=== PATIENT | female | born 1990 | race Caucasian/White ===

== ENCOUNTER 2023-03-25 21:03 | Emergency (ER) | payer OTHER, SELFPAY ==
[2023-03-25 21:09] VITALS: BP 184/99; PULSE 87; RESP 16; TEMP 36.7; O2SAT 100; BMI 38.7
--- NOTE | 2023-03-25 21:28 | HMH.EDGENADL ---
Discharge Plan Disposition Patient Disposition: Home, Self-Care Prescriptions Prescriptions: New amoxicillin-pot clavulanate 875-125 mg tablet 1 tab PO BID 7 Days Qty: 14 0RF No Action Ozempic 1 mg/dose (4 mg/3 mL) Pen Injector 1 mg SQ WEEKLY amoxicillin 500 mg Capsule 500 mg PO BID Referrals Follow up/Referrals: Genet Gusman [Primary Care Provider] - See instructions Activity Restrictions/Add. Instructions Additional Instructions/Restrictions: Call your family doctor to establish care for this visit to the emergency department and schedule follow-up within 48 hours to ensure improvement. If you have any worsening of your condition or any other concerning signs or symptoms, return to the emergency department or your primary care doctor for further evaluation. Clinical Impressions Clinical Impression: Gingival abscess Discharge ED Provider: Panda Stone General Adult HPI General Chief complaint: Dental/Oral Stated complaint: dental pain Time Seen by Provider: 03/25/23 21:10 Mode of Arrival: Family Vehicle Source of Information: Patient Limitations: No Limitations Description of Symptoms (Recalled from ER Triage Doc. by RN): 32 yo female presents with left upper jaw and facial pain. Patient is alert, oriented, afebrile. States she is currently taking amoxicillin and steroids, and poc is to take out the tooth next saturday with the oral surgeon. Moderate swelling noted throughout day today. Denies diffculty breathing. History of Present Illness HPI narrative: 32-year-old female with poor dentition following with dentistry presenting with left-sided facial swelling. Patient states that she has been on antibiotics on and off, supposed to follow-up with dentistry on 05 April. Started having facial swelling for the last couple of days. No fevers or chills, nausea or vomiting, but having difficulty and pain with eating secondary to pain. No trismus, voice changes, or any other concerns. Related Data Home Medications Medication Instructions Recorded Confirmed amoxicillin 500 mg capsule 500 mg PO BID 03/25/23 03/25/23 semaglutide 1 mg/dose (4 mg/3 mL) 1 mg SQ WEEKLY 03/25/23 03/25/23 subcutaneous pen injector (Ozempic) Previous Rx's Medication Instructions Recorded amoxicillin 875 mg-potassium 1 tab PO BID 7 days #14 tabs 03/25/23 clavulanate 125 mg tablet Allergies Allergy/AdvReac Type Severity Reaction Status Date / Time No Known Allergies Allergy Verified 03/25/23 21:14 [facility] Disclaimer: The information contained in this section may have been updated after the patient was seen, as this information can be updated by other users. Social History Smoking Status: Unknown if ever smoked alcohol intake: never current occupational status: employed Travel in the last 8 weeks: None ROS Obtained: Yes All systems reviewed & no additional complaints except as documented Physical Exam General General appearance: alert and in no apparent distress Head Head exam: atraumatic, normocephalic and other (No obvious, objective swelling of the face, but does feel mildly indurated.) Eye Eye exam: Present normal appearance, PERRL and EOMI ENT ENT exam: Present mucous membranes moist and other (No evidence of tonsillitis, exudate, pharyngeal erythema, uvular deviation, palatal swelling, trismus, obvious drainable dental abscess, angioedema, or other abnormal darell pharyngeal findings) Neck Neck exam: Present normal inspection, full ROM and trachea midline Respiratory Respiratory exam: Absent respiratory distress, wheezes, stridor, accessory muscle use or prolonged expiratory phase Cardiovascular Cardiovascular exam: Present regular rate and normal rhythm Abdominal Exam Abdominal exam: Present soft; Absent distention, tenderness, guarding, rebound, rigidity or normal bowel sounds Extremities Exam Extremities exam: Absent edema Neurological Exam Neurological exam: Present alert,
--- OUTSIDE RECORDS SUMMARY | 2023-03-25 21:28 | XMS_ITS | Continuity of Care Document ---
Author Name Unknown Address [address] [place] [id number] Organization [facility] Phone Care Team Providers Care Director Outpatient Services Name Role Phone ALY, JERMAINE Primary Attending ALY, JERAMINE Admitting ROSA TAYLOR Primary Care ALY, JERMAINE Unavailable RESULTS Patient: LISA SAINZ Date of : 1990 LABORATORY RESULTS Information is not available LABORATORY NARRATIVE RESULTS Information is not available RADIOLOGY RESULTS ORDER 100: MRI UPR JOINT LT WO (LOINC: [id number]) ORDER DATE: March 18, 2023 7:04:00 PM [facility] PATHOLOGY NARRATIVE RESULTS Information is not available MICROBIOLOGY RESULTS No Micro Labs/Results Exist for Patient BLOOD ADMIN RESULTS Information is not available MEDICATIONS HOME MEDICATIONS Status RXNORM Medication Dose Route Frequency Dates Comments R eported By Updated By Drug Treatment Unknown DISCHARGE MEDICATIONS Status RXNORM Medication Dose Route Frequency Dates Comments Physic saranya Updated By No Discharge Medication Info rmation Available INPATIENT MEDICATIONS Status RXNORM Medication Dose Route Frequency Rate
--- OUTSIDE RECORDS SUMMARY | 2023-03-25 21:28 | XMS_ITS | Continuity of Care Document ---
Author Name Unknown Address [address] [place], [place] [id number] Organization [facility] Phone Care Team Providers Care Consulting Analyst Name Role Phone ALY, JERMAINE Primary Attending ALY, JERMAINE Admitting ROSA TAYLOR Primary Care ALY, JERMAINE Unavailable TREATMENT PLAN DISCHARGE MEDICATIONS Status RXNORM Medication Dose Route Frequency Dates Comments U pdated By Patient discharge medication information is not available. PATIENT OPEN ORDERS Code System Description Frequency Occurrences Priority [place] [id number] [facility] Upper extremity [facility] - left MR WO contrast ONE TIME 0 Routine March 18, 2023 7:03:00 PM [facility] ALY JERMAINE [id number] on March 18, 2023 7:04:00 PM [facility] SCHEDULED PROCEDURES Code System Description Status Scheduled Date Upd ated By Patient scheduled procedure information is not available. MEDICATIONS HOME MEDICATIONS Status RXNORM Medication Dose Route Frequency Dates Comments R eported By Updated By Drug Treatment Unknown DISCHARGE MEDICATIONS Status RXNORM Medication Dose Route Frequency Dates Comments Physic saranya Updated By No Discharge Medication Info rmation Available INPATIENT MEDICATIONS Status RXNORM Medication Dose Route Frequency Rate Quantity Dates Comments Physician Updated By
[2023-03-25 21:52] VITALS: BP 140/95; PULSE 79; RESP 16; TEMP 36.7; O2SAT 98
== END 2023-03-25 21:53 | disposition home or self-care (01) ==
PROVIDERS: Emergency Provider Emergency Medicine; PCP Nurse Practitioner Family
DX: K04.7 Periapical abscess without sinus (principal); R22.0 Localized swelling, mass and lump, head
CPT/HCPCS: 99283

== ENCOUNTER 2023-06-12 15:59 | Emergency (ER) | payer OTHER, SELFPAY ==
[2023-06-12 16:00] VITALS: BP 167/96; PULSE 92; RESP 19; TEMP 37.5; O2SAT 99; BMI 42.5
--- NOTE | 2023-06-12 16:36 | ED_ITS ---
Discharge Plan Disposition Patient Disposition: Home, Self-Care Condition: Good Prescriptions Prescriptions: New penicillin V potassium 500 mg tablet 500 mg PO BID 10 Days Qty: 20 0RF No Action Ozempic 1 mg/dose (4 mg/3 mL) Pen Injector 1 mg SQ WEEKLY amoxicillin 500 mg Capsule 500 mg PO BID amoxicillin-pot clavulanate 875-125 mg tablet 1 tab PO BID 7 Days Qty: 14 0RF Referrals Follow up/Referrals: Genet Gusman [Primary Care Provider] - See instructions Activity Restrictions/Add. Instructions Additional Instructions/Restrictions: *Monitor Temp, Over the counter Motrin or Tylenol as directed/as needed Tylenol every 4 hours and Motrin every 6 hours (as long as your family doctor has told you that you can take it) for fever or pain. and straight to ER if unable to lower temp less than 101.0 after medication given *Warm salt water gargles may help to soothe the throat *Throat Lozenges? *Warm fluids like tea with honey may help to soothe the throat? *Sleep elevated *Humidifier/Vaporizer *If you did not take Penicillin shot or was unable to, start taking antibiotic immediately and make sure that you take it for the FULL length of time although you should start to feel better in 24-48 hours *change toothbrush and toothpaste 24-48 hours after starting to take antibiotics so you do not reinfect yourself Monitor Temp. Tylenol and/or Ibuprofen as needed. ER if fever is no less than 101 despite alternating Tylenol and Ibuprofen * Encourage fluids, water, Gatorade, powerade, pedialyte if /toddler/or child *Cold fluids, popsicles and ice cream may feel good on his throat Follow up IMMEDIATELY for new or worsening symptoms or no Noticeable improvement over the next 48-72 hours. 911 for difficulty breathing or swallowing Clinical Impressions Clinical Impression: Strep throat Instructions Patient Instructions: Strep Throat, DI for Strep Throat, Penicillin V Potassium Discharge ED Provider[place] Cab[place] [facility] [facility] [place] General Stated complaint: st congestion cough Mode of Arrival: Ambulatory Source of Information: Patient Limitations: No Limitations Time Seen by Provider: 06/12/23 16:36 Description of Symptoms (Recalled from Triage Doc. by RN): Patient complaint of sore throat, cough and sinus issues for 2 days. HEENT Symptoms (Recalled from RN notes): Yes Resp Symptoms (Recalled from RN notes): No Skin Symptoms (Recalled from RN notes): No MS Symptoms (Recalled from RN notes): No Functional Status (Recalled from RN notes): wnl History of Present Illness Provider Complaint: Patient states that for the last couple of days she has been having sore throat and noticed she had white patchy areas all over her tonsils States that she has had a little nasal congestion too but not that bad Related Data Home Medications Medication Instructions Recorded Confirmed amoxicillin 500 mg capsule 500 mg PO BID 03/25/23 03/25/23 semaglutide 1 mg/dose (4 mg/3 mL) 1 mg SQ WEEKLY 03/25/23 03/25/23 subcutaneous pen injector (Ozempic) Previous Rx's Medication Instructions Recorded amoxicillin 875 mg-potassium 1 tab PO BID 7 days #14 tabs 03/25/23 clavulanate 125 mg tablet penicillin V potassium 500 mg 500 mg PO BID 10 days #20 tabs 06/12/23 tablet Allergies Allergy/AdvReac Type Severity Reaction Status Date / Time No Known Allergies Allergy Verified 03/25/23 21:14 Worker's Comp Is this a Worker's Comp case?: No [facility] Disclaimer: The information contained in this section may have been updated after the patient was seen, as this information can be updated by other users. Social History (Updated 03/25/23 @ 21:40 by Panda Stone MD) Smoking Status: Unknown if ever smoked alcohol intake: never current occupational status: employed Travel in the last 8 weeks: None ROS Obtained: Yes All systems reviewed & no additional complaints except as documented and Yes Systems reviewed as appropriate & no additional complaints except as documented Constitutional Constitutional: Reports system reviewed and no additional complaints, except as documented and Reports as per HPI ENT Ears, Nose, Mouth, and Throat: Reports system reviewed and no additional complaints, except as documented, Reports as per HPI, Reports nasal congestion and Reports sore throat Cardiovascular Cardiovascular: Reports system reviewed and no additional complaints, except as documented and Reports as per HPI Respiratory Respiratory: Reports system reviewed and no additional complaints, except as documented and Reports as per HPI Gastrointestinal Gastrointestingal: Reports system reviewed and no additional complaints, except as documented and as per HPI Physical Exam General General appearance: alert and in no apparent distress ENT ENT exam: Present mucous membranes moist Expanded ENT Exam Nose exam: Absent sinus tenderness Throat exam: Present tonsillar erythema and tonsillar exudate Respiratory Respiratory exam: Present normal lung sounds bilaterally; Absent respiratory distress or wheezes Cardiovascular Cardiovascular exam: Present regular rate, normal rhythm and normal heart sounds Neurological Exam Neurological exam: Present alert, oriented X3 and normal gait Medical Decision Making Bryn Inquiry Pt receiving controlled substance: No Bryn was queried for this patient: No Vital Signs: 06/12/23 16:00 Temperature 99.5 F Temperature Source Oral Pulse Rate [Radial] 92 H Respiratory Rate 19 Blood Pressure [Right Arm] 167/96 H Blood Pressure Mean [Right Arm] 119 Blood Pressure Source [Right Arm] Automatic Cuff Blood Pressure Position [Right Arm] Sitting 02 Sat by Pulse Oximetry 99 Oxygen Delivery Method Room Air Lab Data Lab results reviewed: Yes I reviewed the patient's lab results.
[2023-06-12 16:43] LABS: UTC Strep Screen (Rapid) Positive (Negative)
[2023-06-12 16:47] VITALS: BP 167/96; PULSE 92; RESP 19; TEMP 37.5; O2SAT 99
== END 2023-06-12 16:47 | disposition home or self-care (01) ==
PROVIDERS: Emergency Provider Nurse Practitioner; PCP Nurse Practitioner Family
DX: J02.0 Streptococcal pharyngitis (principal); R07.0 Pain in throat; R05.9 Cough, unspecified; R09.81 Nasal congestion
CPT/HCPCS: 87880; 99204; 99212; G0463

== ENCOUNTER 2023-07-30 09:48 | Emergency (ER) | payer OTHER, SELFPAY ==
[2023-07-30 10:00] VITALS: BP 146/94; PULSE 99; RESP 18; TEMP 37.4; O2SAT 99; BMI 40.8
--- NOTE | 2023-07-30 10:17 | ED_ITS ---
Discharge Plan Disposition Patient Disposition: Home, Self-Care Condition: Good Prescriptions Prescriptions: New amoxicillin-pot clavulanate 875-125 mg Tablet 1 tab PO Q12H Qty: 20 0RF guaifenesin [Mucinex] 600 mg tablet extended release 12hr 1,200 mg PO BID PRN (Reason: cough) Qty: 20 0RF No Action Ozempic 1 mg/dose (4 mg/3 mL) Pen Injector 1 mg SQ WEEKLY dapagliflozin propanediol 10 mg tablet 10 mg PO DAILY Patient Comments: TAKE 1 TABLET BY MOUTH ONCE DAILY. Referrals Follow up/Referrals: Genet Gusman [Primary Care Provider] - See instructions Activity Restrictions/Add. Instructions Additional Instructions/Restrictions: *Monitor Temp, Over the counter Motrin or Tylenol as directed/as needed Tylenol every 4 hours and Motrin every 6 hours (as long as your family doctor has told you that you can take it) for fever or pain. and straight to ER if unable to lower temp less than 101.0 after medication given *Warm salt water gargles may help to soothe the throat *Throat Lozenges? *Warm fluids like tea with honey may help to soothe the throat? *Sleep elevated *Humidifier/Vaporizer * Mucinex for your cough Be sure to drink lots of water. Follow up IMMEDIATELY for new or worsening symptoms or no Noticeable improvement over the next 48-72 hours. 911 for difficulty breathing or swallowing Clinical Impressions Clinical Impression: Sinusitis Instructions Patient Instructions: DI for Sinusitis, Sinusitis Discharge ED Provider: Georgiana Cabrales [facility] General Stated complaint: head / chest congestion Mode of Arrival: Ambulatory Source of Information: Patient Limitations: No Limitations Time Seen by Provider: 07/30/23 10:18 Description of Symptoms (Recalled from Triage Doc. by RN): Pt's symptoms are coughing, DOUGLASS, sinus pressure, and chest congestion HEENT Symptoms (Recalled from RN notes): Yes Resp Symptoms (Recalled from RN notes): No Skin Symptoms (Recalled from RN notes): No MS Symptoms (Recalled from RN notes): No Functional Status (Recalled from RN notes): n/a History of Present Illness Provider Complaint: Patient states that she has been having sinus pain and pressure, drainage in the back of her throat, cough and feels like it is moving into her chest and at times will cough up some mucous States today she was still not feeling any better so she came in to get checked before it got worse Related Data Home Medications Medication Instructions Recorded Confirmed semaglutide 1 mg/dose (4 mg/3 mL) 1 mg SQ WEEKLY 03/25/23 07/30/23 subcutaneous pen injector (Ozempic) dapagliflozin propanediol 10 mg 10 mg PO DAILY Diabetes 07/30/23 07/30/23 tablet Previous Rx's Medication Instructions Recorded amoxicillin 875 mg-potassium 1 tab PO Q12H #20 tabs 07/30/23 clavulanate 125 mg tablet guaifenesin 600 mg tablet, 1,200 mg (2 x 600 mg) PO BID PRN 07/30/23 extended release 12 hr (Mucinex) cough #20 tabs Allergies Allergy/AdvReac Type Severity Reaction Status Date / Time No Known Allergies Allergy Verified 07/30/23 10:13 Worker's Comp Is this a Worker's Comp case?: No [facility] Disclaimer: The information contained in this section may have been updated after the patient was seen, as this information can be updated by other users. Social History Smoking Status: Unknown if ever smoked alcohol intake: never current occupational status: employed Travel in the last 8 weeks: None ROS Obtained: Yes All systems reviewed & no additional complaints except as documented and Yes Systems reviewed as appropriate & no additional complaints except as documented Constitutional Constitutional: Reports system reviewed and no additional complaints, except as documented and Reports as per HPI ENT Ears, Nose, Mouth, and Throat: Reports system reviewed and no additional complaints, except as documented, Reports as per HPI, Reports sinus pain and Reports sinus pressure Cardiovascular Cardiovascular: Reports system reviewed and no additional complaints, except as documented and Reports as per HPI Respiratory Respiratory: Reports system reviewed and no additional complaints, except as documented, Reports as per HPI, Reports chest congestion and Reports cough Gastrointestinal Gastrointestingal: Reports system reviewed and no additional complaints, except as documented and as per HPI Physical Exam General General appearance: alert and in no apparent distress Expanded ENT Exam Nose exam: Present sinus tenderness Throat exam: Present other (Pharyngeal erythema noted with PND) Chest Chest inspection: Present normal inspection and symmetric chest wall rise Respiratory Respiratory exam: Present normal lung sounds bilaterally; Absent respiratory distress or wheezes Cardiovascular Cardiovascular exam: Present regular rate, normal rhythm and normal heart sounds Abdominal Exam Abdominal exam: Present soft and normal bowel sounds; Absent distention or tenderness Neurological Exam Neurological exam: Present alert, oriented X3 and normal gait Medical Decision Making Bryn Inquiry Pt receiving controlled substance: No Bryn was queried for this patient: No Vital Signs: 07/30/23 10:00 Temperature 99.4 F Temperature Source Oral Pulse Rate [Right Radial] 99 H Respiratory Rate 18 Blood Pressure [Right Arm] 146/94 H Blood Pressure Mean [Right Arm] 111 Blood Pressure Source [Right Arm] Automatic Cuff Blood Pressure Position [Right Arm] Sitting 02 Sat by Pulse Oximetry 99 Oxygen Delivery Method Room Air
[2023-07-30 10:44] VITALS: BP 146/94; PULSE 99; RESP 18; TEMP 37.4; O2SAT 99
== END 2023-07-30 10:44 | disposition home or self-care (01) ==
PROVIDERS: Emergency Provider Nurse Practitioner; PCP Nurse Practitioner Family
DX: J01.90 Acute sinusitis, unspecified (principal); R05.9 Cough, unspecified; R09.82 Postnasal drip; R09.81 Nasal congestion
CPT/HCPCS: 99212; 99214; G0463

== ENCOUNTER 2023-10-24 18:42 | Emergency (ER) | payer OTHER, SELFPAY ==
[2023-10-24 18:50] VITALS: BP 132/87; PULSE 82; RESP 19; TEMP 37; O2SAT 99; BMI 39.6
--- NOTE | 2023-10-24 19:15 | EXP.UTC ---
Discharge Plan Disposition Patient Disposition: Home, Self-Care Condition: Good Prescriptions Prescriptions: New triamcinolone acetonide 0.1 % cream 1 applic topical BID PRN (Reason: itching) Qty: 30 0RF diphenhydramine HCl 25 mg capsule 25 mg PO Q6HP PRN (Reason: Itching) Qty: 30 0RF methylprednisolone 4 mg Tablets,Dose Pack 4 mg PO DIRECTED 6 Days Qty: 21 0RF Rx Instructions: Take 1 pack as directed for 6 days No Action citalopram 40 mg tablet 40 mg PO DAILY Patient Comments: TAKE 1 TABLET BY MOUTH ONCE DAILY. glipizide 10 mg tablet extended release 24hr 10 mg PO DAILY Patient Comments: TAKE 1 TABLET BY MOUTH TWICE DAILY Ozempic 1 mg/dose (4 mg/3 mL) Pen Injector 1 mg SQ WEEKLY Referrals Follow up/Referrals: Provider,Referral, MD [Primary Care Provider] - See instructions Activity Restrictions/Add. Instructions Additional Instructions/Restrictions: Try to identify and avoid contact with the offending substance. Don't start the oral steroids until tomorrow. The diphenhydramine (benedryl) will make you drowsy, so don't drive or operate heavy machinery after taking it. Don't put the topical steroids (triamcinolone) on your face or your groin. Follow up with your regular doctor. GO TO THE ER FOR ANY WORSENING SYMPTOMS OR CONCERNS The steroids are going to make your blood sugars run higher, so please follow your diabetic diet closely and check your blood sugars as prescribed while you are on them. Clinical Impressions Clinical Impression: Contact dermatitis Instructions Patient Instructions: Contact Dermatitis, DI for Contact Dermatitis, Triamcinolone Topical, Diphenhydramine, Methylprednisolone Injection, Dexamethasone Injection Discharge ED Provider: Mark Dumont [facility] [place] HPI General Stated complaint: rash all over Mode of Arrival: Ambulatory Source of Information: Patient Limitations: No Limitations Time Seen by Provider: 10/24/23 19:15 Description of Symptoms (Recalled from Triage Doc. by RN): PATIENT C/O POISON SEPIDEH/OAK RASH THAT STARTED YESTERDAY ON HER ARMS AND HAS SPREAD HEENT Symptoms (Recalled from RN notes): No Resp Symptoms (Recalled from RN notes): No Skin Symptoms (Recalled from RN notes): Yes MS Symptoms (Recalled from RN notes): No Functional Status (Recalled from RN notes): WNL Related Data Home Medications Medication Instructions Recorded Confirmed semaglutide 1 mg/dose (4 mg/3 mL) 1 mg SQ WEEKLY 03/25/23 10/24/23 subcutaneous pen injector (Ozempic) citalopram 40 mg tablet 40 mg PO DAILY 10/24/23 10/24/23 glipizide 10 mg tablet, extended 10 mg PO DAILY 10/24/23 10/24/23 release 24 hr Previous Rx's Medication Instructions Recorded diphenhydramine HCl 25 mg capsule 25 mg PO Q6HP PRN Itching #30 caps 10/24/23 methylprednisolone 4 mg tablets in 4 mg PO DIRECTED 6 days #21 tabs 10/24/23 a dose pack triamcinolone acetonide 0.1 % 1 applic topical BID PRN itching 10/24/23 topical cream #30 grams Allergies Allergy/AdvReac Type Severity Reaction Status Date / Time No Known Allergies Allergy Verified 07/30/23 10:13 Worker's Comp Is this a Worker's Comp case?: [facility] Disclaimer: The information contained in this section may have been updated after the patient was seen, as this information can be updated by other users. Medical History (Updated 10/24/23 @ 19:41 by aMrk Dumont APRN) Depression Anxiety Diabetes mellitus, type 2 Surgical History (Updated 10/24/23 @ 19:09 by Neeru Thacker RN) History of tympanostomy tube placement History of section Social History Smoking Status: Unknown if ever smoked alcohol intake: never current occupational status: employed Travel in the last 8 weeks: None ROS Obtained: Yes All systems reviewed & no additional complaints except as documented Constitutional Constitutional: Denies chills and Denies fever(s) Eyes Eyes: Denies eye discharge ENT Ears, Nose, Mouth, and Throat: Denies dizziness, Denies otalgia and Denies sore throat Cardiovascular Cardiovascular: Denies chest pain Respiratory Respiratory: Denies shortness of breath, Denies chest congestion, Denies cough, Denies stridor and Denies wheezing Gastrointestinal Gastrointestingal: Denies nausea or vomiting Musculoskeletal Musculoskeletal: Reports system reviewed and no additional complaints, except as documented and Denies arthralgias Integumentary/Breasts Skin/Breast: Reports as per HPI and Reports rash Neurologic Neurologic: Denies dizziness and Denies paresthesias Allergic/Immunologic Allergic/Immunologic: Denies wheezing Physical Exam General General appearance: alert and in no apparent distress Head Head exam: atraumatic, normocephalic and normal inspection Eye Eye exam: Present normal appearance, PERRL and EOMI ENT ENT exam: Present normal exam, normal oropharynx, mucous membranes moist, TM's normal bilaterally and normal external ear exam Neck Neck exam: Present normal inspection, full ROM and trachea midline; Absent meningismus or lymphadenopathy Chest Chest inspection: Present normal inspection and symmetric chest wall rise; Absent tenderness Respiratory Respiratory exam: Present normal lung sounds bilaterally; Absent respiratory distress Cardiovascular Cardiovascular exam: Present regular rate and normal rhythm; Absent JVD Abdominal Exam Abdominal exam: Present soft and normal bowel sounds; Absent distention, tenderness or guarding Extremities Exam Extremities exam: Present normal inspection, full ROM and normal capillary refill; Absent calf tenderness Back Exam Back exam: Present normal inspection; Absent tenderness Neurological Exam Neurological exam: Present alert and oriented X3 Psychiatric Psychiatric exam: Present normal affect and normal mood Skin Skin exam: Present rash (there are maculopapular lesions on her bilateral arms, neck, face and legs. ) Lymphatic Lymphatic Findings: no adenopathy Medical Decision Making Medical Records Medical records reviewed: No I reviewed the patient's medical records. Bryn Inquiry Pt receiving controlled substance: No Vital Signs: 10/24/23 18:50 Temperature 98.6 F Temperature Source Oral Pulse Rate [Left Brachial] 82 Respiratory Rate 19 Blood Pressure [Left Arm] 132/87 Blood Pressure Mean [Left Arm] 102 Blood Pressure Source [Left Arm] Automatic Cuff Blood Pressure Position [Left Arm] Sitting 02 Sat by Pulse Oximetry 99 Oxygen Delivery Method Room Air
[2023-10-24] MEDS: DEXAMETHASONE 4MG/ML 1ML VIAL 8 MG IM (19:25)
[2023-10-24 19:41] VITALS: BP 132/87; PULSE 82; RESP 19; TEMP 37; O2SAT 99
== END 2023-10-24 19:45 | disposition home or self-care (01) ==
PROVIDERS: Emergency Provider Nurse Practitioner Family
DX: L25.9 Unspecified contact dermatitis, unspecified cause (principal)
CPT/HCPCS: 96372; 99212; 99214; G0463; J1100

== ENCOUNTER 2024-01-26 17:22 | Emergency (ER) | payer OTHER, SELFPAY ==
[2024-01-26 17:24] VITALS: BP 144/84; PULSE 93; RESP 18; TEMP 36.9; O2SAT 97; BMI 38.4
--- NOTE | 2024-01-26 17:24 | ED_ITS ---
<Statement entered by Vanessa Quinteros DO - 01/26/24 20:42> I was consulted by the NO, and we discussed the complexity of the problems being addressed. I approved the treatment and management plan for this patient's care in the emergency department, thus performing a substantive portion of the medical decision making. Vanessa Quinteros DO Discharge Plan Disposition Patient Disposition: Home, Self-Care Condition: Good Prescriptions Prescriptions: No Action citalopram 40 mg tablet 40 mg PO DAILY Patient Comments: TAKE 1 TABLET BY MOUTH ONCE DAILY. glipizide 10 mg tablet extended release 24hr 10 mg PO DAILY Patient Comments: TAKE 1 TABLET BY MOUTH TWICE DAILY triamcinolone acetonide 0.1 % cream 1 applic topical BID PRN (Reason: itching) Qty: 30 0RF diphenhydramine HCl 25 mg capsule 25 mg PO Q6HP PRN (Reason: Itching) Qty: 30 0RF methylprednisolone 4 mg Tablets,Dose Pack 4 mg PO DIRECTED 6 Days Qty: 21 0RF Rx Instructions: Take 1 pack as directed for 6 days Ozempic 1 mg/dose (4 mg/3 mL) Pen Injector 1 mg SQ WEEKLY Referrals Follow up/Referrals: Provider,Referral, MD [Primary Care Provider] - See instructions Ruth Ann Tena DPM [Staff Physician] - See instructions Activity Restrictions/Add. Instructions Additional Instructions/Restrictions: Rest ice compression elevation as tolerated. Call in the morning to schedule follow-up with Dr. Tena of podiatry. Return to ER for any worsening signs or symptoms as needed. Clinical Impressions Clinical Impression: Injury of foot, left Print Language Print Language: Cypriot Discharge ED Provider: Vanessa Quinteros General Adult HPI General Chief complaint: Extremity Injury, Lower Stated complaint: AO 01-26-24 fell and hurt left ankle Time Seen by Provider: 01/26/24 17:24 History of Present Illness HPI narrative: Patient presents for evaluation of the left ankle and foot injury. Patient accidentally fell off of her front porch inverting her left ankle. Patient states that she was able to bear weight however it is very painful. She has no numbness or tingling loss of sensation. She did not injure anything did not strike her head did not lose consciousness. Related Data Home Medications ?Medication ?Instructions ?Recorded ?Confirmed semaglutide 1 mg/dose (4 mg/3 mL) 1 mg SQ WEEKLY 03/25/23 10/24/23 subcutaneous pen injector (Ozempic) citalopram 40 mg tablet 40 mg PO DAILY 10/24/23 10/24/23 glipizide 10 mg tablet, extended 10 mg PO DAILY 10/24/23 10/24/23 release 24 hr Previous Rx's ?Medication ?Instructions ?Recorded diphenhydramine HCl 25 mg capsule 25 mg PO Q6HP PRN Itching #30 caps 10/24/23 methylprednisolone 4 mg tablets in 4 mg PO DIRECTED 6 days #21 tabs 10/24/23 a dose pack triamcinolone acetonide 0.1 % 1 applic topical BID PRN itching 10/24/23 topical cream #30 grams Allergies Allergy/AdvReac Type Severity Reaction Status Date / Time No Known Allergies Allergy Verified 07/30/23 10:13 [facility] Disclaimer: The information contained in this section may have been updated after the patient was seen, as this information can be updated by other users. Medical History (Updated 01/26/24 @ 19:32 by NEENA Mckee) Depression Anxiety Diabetes mellitus, type 2 Surgical History (Updated 10/24/23 @ 19:09 by Neeru Thacker RN) History of tympanostomy tube placement History of section Social History Smoking Status: Never smoker alcohol intake: never current occupational status: employed Travel in the last 8 weeks: None ROS Obtained: Yes Systems reviewed as appropriate & no additional complaints except as documented Physical Exam General General appearance: alert and in no apparent distress Respiratory Respiratory exam: Present normal lung sounds bilaterally Cardiovascular Cardiovascular exam: Present regular rate Neurological Exam Neurological exam: Present alert and oriented X3 Medical Decision Making Medical Records Screening: Per USPSTF and CDC recommendations, given the prevalence of disease in our [facility], it is our hospital?s policy to screen for HIV and viral Hepatitis for all patients aged 18 and over and those with ongoing risk factors. Bryn Inquiry Pt receiving controlled substance: No Vital Signs: 01/26/24 17:24 01/26/24 19:46 Temperature 98.5 F 98.6 F Temperature Source Oral Oral Pulse Rate 84 Pulse Rate [Right] 93 H Respiratory Rate 18 18 Blood Pressure 131/78 Blood Pressure [Right Arm] 144/84 H Blood Pressure Mean [Right Arm] 104 Blood Pressure Source Automatic Cuff Blood Pressure Position Sitting 02 Sat by Pulse Oximetry 97 Oxygen Delivery Method Room Air Room Air Orders (Tests/Meds): ED MEDICATIONS Discontinued Medications Generic Name Dose Route Start Last Admin Trade Name Pb PRN Reason Stop Dose Admin Acetaminophen 1,000 mg 01/26/24 17:38 01/26/24 17:58 Acetaminophen 1,000mg/100ml Vial IV 01/26/24 17:39 Not Given ONCE ONE Acetaminophen 1,000 mg 01/26/24 17:44 01/26/24 17:46 Acetaminophen 500mg Tab PO 01/26/24 17:45 1,000 mg ONCE ONE Administration Ibuprofen 800 mg 01/26/24 17:38 01/26/24 17:47 Ibuprofen 400 Mg Tablet PO 01/26/24 17:39 800 mg ONCE ONE Administration ORDERS Category Date Time Status Ankle XR - Left minimum 3 Views [XR ankle LT min 3V] Exams 01/26/24 17:37 Completed Stat Foot XR left minimum 3 views [XR foot LT min 3V] Stat Exams 01/26/24 17:37 Completed Medical Decision Narrative: In summary patient is a 33-year-old female who presents to the emergency department for evaluation of left ankle and foot injury. Patient is hemodynamically stable upon arrival, afebrile. Physical exam is remarkable for ecchymosis across the bridge of the foot and medial malleolus but no palpable bony deformity. Patient has palpable DP and PT pulses that were marked by myself with an ink pen. She is neurovascularly intact distally.. Differential diagnosis includes sprain versus fracture etc. Initial workup will be conducted with plain film x-rays. Initial interventions include Tylenol Motrin. Initial workup reviewed by me my informal termination of her plain from x-ray shows no acute fracture prior to radiology read which was confirmed by radiology.. Upon repeat evaluation patient had improvement in her pain after initial intervention and is able to bear weight. Given this patient is appropriate for discharge referral to podiatry with an Du wrap weightbearing as tolerated with crutches. Critical Care Critical Care Time Critical Care Time: No
--- NOTE | 2024-01-26 17:37 | XR_ITS ---
PROCEDURE INFORMATION: Exam: XR Left Ankle Exam date and time: 01/26/2024 5:55 PM Age: 33 years old Clinical indication: Injury or trauma; Fall; Blunt trauma; Foot; Left; Additional info: Fell off a porch TECHNIQUE: Imaging protocol: Radiologic exam of the left ankle. Views: 3 or more views. COMPARISON: No relevant prior studies available. FINDINGS: Bones/joints: There is a plantar calcaneal enthesophyte. The osseous structures appear intact with no evidence of acute fracture, dislocation, or malalignment. Joint spaces are preserved. No abnormal bone density or destructive lesions are noted. Soft tissues: Soft tissues appear unremarkable. IMPRESSION: At the time of imaging, there is no evidence for acute osseous abnormalities.
--- NOTE | 2024-01-26 17:37 | XR_ITS ---
PROCEDURE INFORMATION: Exam: XR Left Foot Exam date and time: 01/26/2024 5:57 PM Age: 33 years old Clinical indication: Injury or trauma; Fall; Blunt trauma; Foot; Left; Additional info: Fell off a porch TECHNIQUE: Imaging protocol: Radiologic exam of the left foot. Views: 3 or more views. COMPARISON: CR XR ANKLE LT MIN 3V 01/26/2024 5:55 PM FINDINGS: Bones/joints: There is a plantar calcaneal enthesophyte. The osseous structures appear intact with no evidence of acute fracture, dislocation, or malalignment. Joint spaces are preserved. No abnormal bone density or destructive lesions are noted. Soft tissues: Soft tissues appear unremarkable. IMPRESSION: At the time of imaging, there is no evidence for acute osseous abnormalities.
[2024-01-26] MEDS: ACETAMINOPHEN 500MG TAB 1000 MG PO (17:46)
[2024-01-26] MEDS: IBUPROFEN 400 MG TABLET 800 MG PO (17:47)
[2024-01-26 19:46] VITALS: BP 131/78; PULSE 84; RESP 18; TEMP 37; O2SAT 99
== END 2024-01-26 19:51 | disposition home or self-care (01) ==
PROVIDERS: Emergency Provider Emergency Medicine
DX: S99.912A Unspecified injury of left ankle, initial encounter (principal); S99.922A Unspecified injury of left foot, initial encounter; E11.9 Type 2 diabetes mellitus without complications; W17.89XA Other fall from one level to another, initial encounter; Y92.007 Garden or yard of unspecified non-institutional (private) residence as the place of occurrence of the external cause
CPT/HCPCS: 73610; 73630; 99283

== ENCOUNTER 2024-02-11 11:52 | Outpatient (CLI) | payer OTHER, SELFPAY ==
--- NOTE | 2024-02-11 11:57 | XR_ITS ---
FINAL REPORT CLINICAL HISTORY: Foot Pain COMPARISON: None FINDINGS: RIGHT FOOT: Three views of the right foot were obtained. There is no acute fracture or dislocation. A mild hallux valgus deformity is present. Mild degenerative change is present, as well as small calcaneal bony spurs. There is no soft tissue abnormality. IMPRESSION: Mild hallux valgus deformity, with mild degenerative change and small calcaneal bony spurs. Reviewed, Interpreted and Dictated by Jonathan Grier III, MD Transcribed by Kristal De Dios Authenticated and [facility]
--- NOTE | 2024-02-11 11:57 | XR_ITS ---
FINAL REPORT CLINICAL HISTORY: Foot Pain COMPARISON: None FINDINGS: LEFT FOOT: Three views of the left foot were obtained. There is no acute fracture or dislocation. Mild degenerative change is present. There is a mild hallux valgus deformity. Calcaneal spurs are present as well. There is no soft tissue abnormality. IMPRESSION: Mild degenerative change, with a mild hallux valgus deformity and calcaneal spurs. Reviewed, Interpreted and Dictated by Jonathan Grier III, MD Transcribed by Kristal De Dios Authenticated and [facility]
== END 2024-02-11 23:59 | disposition home or self-care (01) ==
LOC: RAD 11:55
PROVIDERS: PCP Nurse Practitioner Family; Visit Provider Podiatrist
DX: M79.671 Pain in right foot (principal); M79.672 Pain in left foot
CPT/HCPCS: 73630

== ENCOUNTER 2024-03-10 13:03 | Outpatient (CLI) | payer OTHER, SELFPAY ==
--- NOTE | 2024-03-10 13:06 | XR_ITS ---
PROCEDURE INFORMATION: Exam: XR Left Foot Complete; Alignment Exam date and time: 03/10/2024 1:15 PM Age: 33 years old Clinical indication: Pain; Foot; Left; Additional info: Foot pain/sprain of 5th met TECHNIQUE: Imaging protocol: Radiologic exam of the left foot. Views: 3 or more views. COMPARISON: CR XR FOOT WT BEARING LT 3V 02/11/2024 12:05 PM FINDINGS: Bones/joints: No visible fracture or dislocation. 5th metatarsal is intact. Small calcaneal spur noted. Os peroneum is incidentally noted. Soft tissues: Normal. IMPRESSION: No visible fracture or dislocation. 5th metatarsal is intact.
== END 2024-03-10 23:59 | disposition home or self-care (01) ==
LOC: RAD 13:03
PROVIDERS: PCP Nurse Practitioner Family; Visit Provider Podiatrist
DX: M79.672 Pain in left foot (principal); S93.602A Unspecified sprain of left foot, initial encounter; S99.922A Unspecified injury of left foot, initial encounter
CPT/HCPCS: 73630

== ENCOUNTER 2024-03-25 10:08 | Emergency (ER) | payer OTHER, SELFPAY ==
--- NOTE | 2024-03-25 10:09 | XR_ITS ---
FINAL REPORT CLINICAL HISTORY: pain FINDINGS: Right wrist Three views were obtained. There is no fracture or dislocation. The joint spaces appear normal. No soft tissue abnormality is identified. IMPRESSION: No acute process. Reviewed, Interpreted and Dictated by Oracio Mena MD Transcribed by Gina Armstrong Authenticated and [facility]
--- NOTE | 2024-03-25 10:09 | XR_ITS ---
FINAL REPORT CLINICAL HISTORY: pain FINDINGS: Right hand Three views were obtained. There is no fracture or dislocation. The joint spaces appear normal. There is soft tissue swelling over the dorsum of the hand. There is no periosteal reaction. No foreign body is identified. IMPRESSION: Soft tissue swelling without acute bony abnormality. Reviewed, Interpreted and Dictated by Oracio Mena MD Transcribed by Gina Armstrong Authenticated and [facility]
--- NOTE | 2024-03-25 11:41 | EXP.UTC ---
Discharge Plan Disposition Patient Disposition: Home, Self-Care Condition: Good Prescriptions Prescriptions: New ibuprofen [IBU] 800 mg tablet 800 mg PO Q8HP PRN (Reason: Moderate Pain) Qty: 30 0RF No Action omeprazole 20 mg capsule,delayed release(DR/EC) 20 mg PO DAILY Referrals Follow up/Referrals: Jatinder Rodriguez MD [Referring] - See instructions Genet Gusman [Primary Care Provider] - See instructions Activity Restrictions/Add. Instructions Additional Instructions/Restrictions: Rest the extremity, apply ice for 15 minutes as tolerated three or four times per day, Elevate the extremity as tolerated while you are resting. Take ibuprofen or tylenol for pain. Follow up with your orthopedic physican that you see for your other hand. Follow up with your regular doctor. GO TO THE ER FOR ANY WORSENING SYMPTOMS Clinical Impressions Clinical Impression: Crushing injury of right hand, Pain in right hand Instructions Patient Instructions: DI for Crush Injury Print Language Print Language: Kosovan Discharge ED Provider: Mark Dumont [facility] General Stated complaint: AO 03/24/24, inj right hand Time Seen by Provider: 03/25/24 11:41 Related Data Home Medications ?Medication ?Instructions ?Recorded ?Confirmed omeprazole 20 mg capsule,delayed 20 mg PO DAILY 03/10/24 03/25/24 release Previous Rx's ?Medication ?Instructions ?Recorded ibuprofen 800 mg tablet (IBU) 800 mg PO Q8HP PRN Moderate Pain 03/25/24 #30 tabs Allergies Allergy/AdvReac Type Severity Reaction Status Date / Time No Known Allergies Allergy Verified 03/10/24 13:40 [facility] Disclaimer: The information contained in this section may have been updated after the patient was seen, as this information can be updated by other users. Medical History Depression Anxiety Diabetes mellitus, type 2 Surgical History History of tympanostomy tube placement History of section Social History Smoking Status: Never smoker alcohol intake: never current occupational status: employed Travel in the last 8 weeks: None ROS Obtained: Yes All systems reviewed & no additional complaints except as documented Constitutional Constitutional: Denies chills and Denies fever(s) Eyes Eyes: Denies eye discharge ENT Ears, Nose, Mouth, and Throat: Denies dizziness, Denies otalgia and Denies sore throat Cardiovascular Cardiovascular: Denies chest pain Respiratory Respiratory: Denies shortness of breath, Denies chest congestion, Denies cough, Denies stridor and Denies wheezing Gastrointestinal Gastrointestingal: Denies nausea or vomiting Musculoskeletal Musculoskeletal: Reports system reviewed and no additional complaints, except as documented and Reports as per HPI Integumentary/Breasts Skin/Breast: Denies redness, Denies rash and Denies wounds Neurologic Neurologic: Denies dizziness and Denies paresthesias Allergic/Immunologic Allergic/Immunologic: Denies wheezing Physical Exam General General appearance: alert and in no apparent distress Head Head exam: atraumatic, normocephalic and normal inspection Eye Eye exam: Present normal appearance, PERRL and EOMI ENT ENT exam: Present normal exam, normal oropharynx, mucous membranes moist, TM's normal bilaterally and normal external ear exam Neck Neck exam: Present normal inspection, full ROM and trachea midline; Absent meningismus or lymphadenopathy Chest Chest inspection: Present normal inspection and symmetric chest wall rise; Absent tenderness Respiratory Respiratory exam: Present normal lung sounds bilaterally; Absent respiratory distress Cardiovascular Cardiovascular exam: Present regular rate and normal rhythm; Absent JVD Abdominal Exam Abdominal exam: Present soft and normal bowel sounds; Absent distention, tenderness or guarding Extremities Exam Extremities exam: Present normal capillary refill; Absent calf tenderness Expanded Upper Extremity Exam Right: Forearm/Wrist exam: Present normal inspection and full ROM; Absent tenderness, tenderness over anatomical snuff box or pain with axial thumb loading Hand exam: Present full ROM and tenderness; Absent swelling, abrasion, laceration, skin avulsion, ecchymosis, deformity, crepitus, erythema, amputation, nail avulsion or subungual hematoma Neuromotor exam: Normal wrist extension, thumb opposition, thumb IP flexion, thumb adduction and fingers 2-5 abduction Neurosensory exam: Normal radial nerve, ulnar nerve and median nerve Vascular exam: Normal capillary refill, radial pulse and ulnar pulse Back Exam Back exam: Present normal inspection; Absent tenderness Neurological Exam Neurological exam: Present alert and oriented X3 Psychiatric Psychiatric exam: Present normal affect and normal mood Skin Skin exam: Present warm, dry, intact and normal color Lymphatic Lymphatic Findings: no adenopathy Medical Decision Making Medical Records Medical records reviewed: No I reviewed the patient's medical records. Screening: Per USPSTF and CDC recommendations, given the prevalence of disease in our region, it is our hospital?s policy to screen for HIV and viral Hepatitis for all patients aged 18 and over and those with ongoing risk factors. Bryn Inquiry Pt receiving controlled substance: No Orders (Tests/Meds): ORDERS Category Date Time Status Wrist XR right minimum 3 views [XR wrist RT min 3V] Exams 03/25/24 10:09 Completed Stat XR hand RT min 3V Stat Exams 03/25/24 10:09 Completed
[2024-03-25 11:50] VITALS: BP 150/102; PULSE 94; RESP 20; TEMP 36.8; O2SAT 99; BMI 34.5
[2024-03-25 12:01] VITALS: BP 150/102; PULSE 94; RESP 20; TEMP 36.8; O2SAT 99
== END 2024-03-25 12:07 | disposition home or self-care (01) ==
PROVIDERS: Emergency Provider Nurse Practitioner Family; PCP Nurse Practitioner Family
DX: S67.21XA Crushing injury of right hand, initial encounter (principal); W23.0XXA Caught, crushed, jammed, or pinched between moving objects, initial encounter
CPT/HCPCS: 73110; 73130; 99213; G0381

== ENCOUNTER 2024-03-26 13:39 | Outpatient (CLI) | payer OTHER, SELFPAY ==
--- NOTE | 2024-03-26 13:40 | MR_ITS ---
FINAL REPORT CLINICAL HISTORY: Ankle Pain pain more in heel and going up back of lower leg x years FINDINGS: Multiplanar MR imaging of the right ankle was performed without contrast. The bony structures are intact without evidence of fracture, bone bruise or marrow edema. No osteochondral lesion is identified. The ligaments are intact without evidence of injury. The flexor and extensor tendons are intact. The posterior plantar aponeurosis is intact. There is a large plantar calcaneal spur. Plantar fascia extends to the insertion of the spur without inflammation or edema. Mortise is intact. No significant joint effusion is seen. The musculature is intact. There is no evidence of soft tissue mass or cyst. IMPRESSION: Large plantar calcaneal spur. Reviewed, Interpreted and Dictated by Oracio Mena MD Transcribed by Celestina Richey Authenticated and . [facility]
== END 2024-03-26 23:59 | disposition home or self-care (01) ==
LOC: RAD 13:40
PROVIDERS: PCP Nurse Practitioner Family; Visit Provider Podiatrist
DX: M25.571 Pain in right ankle and joints of right foot (principal); S93.492D Sprain of other ligament of left ankle, subsequent encounter
CPT/HCPCS: 73721

== ENCOUNTER 2024-04-07 11:24 | Outpatient (CLI) | payer OTHER, SELFPAY ==
--- NOTE | 2024-04-07 11:28 | XR_ITS ---
FINAL REPORT CLINICAL HISTORY: Foot Pain COMPARISON: 03/10/2024 FINDINGS: LEFT FOOT: Three views of the left foot were obtained. There is no acute fracture or dislocation. There is a mild hallux valgus deformity. Calcaneal spurs are present. The joint spaces are intact. There is no soft tissue abnormality. IMPRESSION: Mild hallux valgus deformity and calcaneal spurs, stable from prior exam. Reviewed, Interpreted and Dictated by Jonathan Grier III, MD Transcribed by Jeane Garsia Authenticated and [facility]
--- NOTE | 2024-04-07 11:28 | XR_ITS ---
FINAL REPORT CLINICAL HISTORY: Ankle Pain COMPARISON: None FINDINGS: RIGHT ANKLE: Three views of the right ankle were obtained. There is no acute fracture or dislocation. The joint spaces and mortise are intact. There is no soft tissue abnormality. IMPRESSION: No acute bony abnormality. Reviewed, Interpreted and Dictated by Jonathan Grier III, MD Transcribed by Jeane Garsia Authenticated and [facility]
--- NOTE | 2024-04-07 11:28 | XR_ITS ---
FINAL REPORT CLINICAL HISTORY: Foot Pain COMPARISON: 02/11/2024 FINDINGS: RIGHT FOOT: Three views of the right foot were obtained. There is no acute fracture or dislocation. There is a mild hallux valgus deformity. Calcaneal spurs are present. The joint spaces are intact. There is no soft tissue abnormality. IMPRESSION: Mild hallux valgus deformity and calcaneal spurs, stable from prior exam. Reviewed, Interpreted and Dictated by Jonathan Grier III, MD Transcribed by Jeane Garsia Authenticated and [facility]
== END 2024-04-07 23:59 | disposition home or self-care (01) ==
LOC: RAD 11:25
PROVIDERS: PCP Nurse Practitioner Family; Visit Provider Podiatrist
DX: M25.571 Pain in right ankle and joints of right foot (principal); M79.671 Pain in right foot; M79.672 Pain in left foot
CPT/HCPCS: 73610; 73630

== ENCOUNTER 2024-04-08 10:55 | Outpatient (CLI) | payer OTHER, SELFPAY ==
--- NOTE | 2024-04-08 11:11 | ECG_ITS ---
APPROVED REPORT Exam: Resting ECG HR:54 bpm ECG Measurements Heart Rate 54 AXES KS 143 P 59 QRSd 96 QRS 102 QT 282 T -88 QTc 268 Conclusion SINUS BRADYCARDIA WITH SINUS ARRHYTHMIA RIGHT AXIS DEVIATION [QRS AXIS > 100] LOW QRS VOLTAGE IN PRECORDIAL LEADS [QRS DEFLECTION < 1.0 mV IN CHEST LEADS] MODERATE T-WAVE ABNORMALITY, CONSIDER INFERIOR ISCHEMIA [-0.1+ mV T-WAVE IN II/aVF] ABNORMAL ECG UNCONFIRMED REPORT Electronically signed by : Mike Ceballos MD 04/08/2024 20:54:31
[2024-04-08 11:41] LABS: Basophils # 0.1 K/mm3 (0-0.2); Eosinophils # 0.1 K/mm3 (0.0-0.4); Eosinophils % 1.5 % (0.1-12.0); Hematocrit 40.9 % (37.0-47.0); Hemoglobin 13.8 g/dL (12.2-16.2); Lymphocytes # 2.4 K/mm3 (0.7-4.5); Lymphocytes % 27.9 % (10-50); Mean Corpuscular HGB Conc 33.7 g/dL (31.8-35.4); Mean Corpuscular Hemoglobin 28.9 pg (27.0-31.2); Mean Corpuscular Volume 85.6 fl (81-99); Mean Platelet Volume 10.2 fl (7.4-10.4); Monocytes # 0.4 K/mm3 (0.1-1.0); Monocytes % 4.4 % (1.7-9.3); Neutrophils # 5.5 K/mm3 (1.8-7.8); Neutrophils % 65.1 % (37.0-80.0); Platelet Count 258 K/mm3 (142-424); Red Blood Count 4.77 M/mm3 (4.20-5.40); Red Cell Distribution Width 13.6 % (11.5-17.5); White Blood Count 8.5 K/mm3 (4.8-10.8)
[2024-04-08 12:07] LABS: Alanine Aminotransferase 29 U/L (12-78); Albumin/Globulin Ratio 1.7 (1.1-1.8); Alkaline Phosphatase 65 U/L (38-126); Anion Gap 12.2 mEq/L (5-15); Aspartate Amino Transferase 26 U/L (14-36); Bilirubin,Total 0.6 mg/dl (0.2-1.3); Blood Urea Nitrogen 5 mg/dl (7-17); Calcium 9.2 mg/dl (8.4-10.2); Carbon Dioxide 25 mmol/L (22.0-30.0); Chloride 108 mmol/L (98-107); Estimated Glomerular Filt Rate 114 ml/min (>60); GFR (African American) 138 ML/MIN (>60); Globulin 2.4 g/dL (1.3-3.2); Glucose 99 mg/dl (74-100); Potassium 4.2 mmoL/L (3.5-5.1); Sodium 141 mmol/L (136-145); Total Protein,Serum 6.4 g/dl (6.3-8.2)
[2024-04-08 12:19] LABS: Erythrocyte Sedimentation Rate 32 mm/hr (0-20)
[2024-04-22 05:02] LABS: 1,25 Dihydroxy Vitamin D 68 pg/mL (.); 1,25-Dihydroxy, Vitamin D-2 <10 pg/mL (.); 1,25-Dihydroxy, Vitamin D-3 68 pg/mL (.)
== END 2024-04-08 23:59 | disposition home or self-care (01) ==
LOC: LAB 10:56
PROVIDERS: PCP Nurse Practitioner Family; Visit Provider Podiatrist
DX: Z01.818 Encounter for other preprocedural examination (principal); E67.3 Hypervitaminosis D
CPT/HCPCS: 36415; 80053; 82652; 85025; 85651; 93005

== ENCOUNTER 2024-11-23 13:30 | Emergency (ER) | payer OTHER, SELFPAY ==
--- OUTSIDE RECORDS SUMMARY | 2024-10-06 12:45 | XMS_ITS | Encounter Summary ---
Author Organization [facility] Address [address] [place] [address] Care Team Providers Care Front Office Coordinator Name Role Phone Genet Gusman APRN Primary Care Provider + [phone] Georgiana Palomares RN Unavailable Unavailable Reason for Visit * Consultation (Routine) - Authorized Specialty Diagnoses / Procedures Referred By Gladis acosta Referred To Contact Occupational Therapy Diagnoses Carpal tunnel syndrome, left Jatinder Rodriguez MD [address] [address] Phone: tel: fax: Referral ID Status Reason Start Date Expiration Date Visits Requested Visits Authorized [id number] Authorized Specialty Services Required 10/06/2024 04/07/2026 1 16 Encounter Details Date Type Department Care Team (Late st Contact Info) Description 10/06/2024 12:45 PM EDT Office Visit [facility] [address] [place] [phone] Georgiana Hutchinson Carpal tunnel syndrome, left (Primary Dx) Social History Tobacco Use Types Packs/Day Years Used Date Smoking Tobacco: Former Cigarettes Q uit: 2010 Smokeless Tobacco: Never Alcohol Use Standard Drinks/Week Comments Never 0 (1 standard drink = 0.6 oz pur e alcohol) PHQ-2 Answer Date Recorded Patient Health Questionnaire-2 Score 0 09/08/2024 PHQ-9 Answer Date Recorded Patient Health Questionnaire-9 Score 0 09/08/2024 Comments No Sex and Gender Information Value Date Recorded Sex Assigned at Not on file Legal Sex Female 6:31 PM EDT Gender Identity Not on file Sexual Orientation Not on file documented as of this encounter Miscellaneous Notes * Progress Notes - Georgiana Hutchinson E - 10/06/2024 12:45 PM EDT [facility] Occupational Therapy Hand Evaluation Date: 10/06/24 Name: Teresa Paiz : 1990 Diagnosis: Encounter Diagnosis Name Primary? Carpal tunnel syndrome, left Yes Rehab Potential/Prognosis: fair. Complexity: Low Complexity using Standard OT Assessment (80665). Time in: 11:15 am Time out: 12:00 pm Reason for Referral: CTS- Left Evaluate & Treat History of Present Injury/Status: Pt had CTR in Jan, after which her nerve symptoms in her left hand resolved. However as she completed OT, she developed more and more pain in her left wrist localized to her pisiform. She underwent and EMG & MRI that were inconclusive. She has another MRI for November and will follow up with Dr. Rodriguez. She currently wears a brace made during previous OT for support. She endorse positive response to to KTAPE and soft tissue mobilization Surgery Date: 01/27/24 Mechanism Of Injury: Unknown Restriction/Precautions: none Patient accompanied by: self Diagnostic Testing: none SUBJECTIVE 6.3.25- ' I'm still wearing my brace. As much as I can at work, it helps! 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 9/10 R)16 Lat P L)14 R)20 2pt P L) 14 P! 9/10 R)18 1pt L)12 Special Tests: TTP! Over pisiform, and pain along ulnar side of forearm. Other Assessments: N/A Modalities: Paraffin: 10 minutes to left Wrist, Hand, and Fingers. Procedure/Treatment OT Evaluation-Low complexity Manual Therapy (79599): 23 minutes to left Wrist, Hand, and Fingers IAS soft tissue massage of scar, KTAPE of ulnar side of wrist, updated above measures, Education Performed: Patient was educated in the following: anatomy related to injury, wound healing, wound care, precautions / activity restriction, home exercise program frequency and duration, progression of HEP, edema management techniques, and scar management strategies and techniques Patient was educated through the following methods: OT hand education: verbally, with a demonstration, and with handouts. Treatment focused on: Soft tissue mobilization Decreasing edema Range of motion Stretching Functional movement patterns of the upper extremity Functional pinch Functional steel layout worker Translation of objects in palm. ASSESSMENT Teresa Paiz is a 34 y.o. female who returns with previous compliant of L wrist pain at base of carpus down into forearm. Pt demonstrates continued pain at pisiform and into forearm with little relief. She continues to wear brace (ulnar based wrist cock up) and endorses support from KTAPE. Tolerated soft tissue mobilization well today. Given lack of change in symptoms, dicussed trial of dry needling and plan to try next visit. MLFs: At risk for scar adherence, Increased edema, Decrease ROM, Extrinsic tightness, Intrinsic tightness, Muscle guarding, and Decreased strength decreasing functional performance in meaningful occupations. Skilled therapy is appropriate at this time to address these impairments. Primary Language: Khmer Needs communication device: No Does the patient understand basic information? Yes, able to self manage. Barriers to learning: None Barriers to Rehabilitation: None Cultural/Episcopalian beliefs: None that will affect treatment PLAN Patient to be seen 1 times per week for 4-6 weeks. Treatment may include patient education, position needs such as orthotics/braces, development of HEP, therapeutic exercise, Occupational based treatment, including ADLs, IADLs, work, leisure, joint protection, energy conservation, development and progression of HEP, therapeutic exercise, postural re-education, body mechanics training, joint/soft tissue mobilizations, joint protection, energy conservation, taping, and modalities as indicated to include heat, ice, ultrasound, TENS, iontophoresis with 1-3 ml of 4mg/ml of dexamethasone phosphate applied at 40-80mAm, and/or electrical stimulation.If patient does not return for 30 days, patient is considered to be discharged at this time and no discharge G code will be assigned. Patient agrees with/understands the plan of care. Patient advisedto call the clinic with any questions or concerns. Goals LTG: to be met in 4-6 visits Pt will imrpove QDASH score to <20% in order to quantify patient percieved improvement in function by discharge Improve steel layout worker strength to 70% of UUE necessary for ability to steel layout worker and lift objects during IADL tasks such as broom,scrub brushes Demonstrate ability to weight bear on hand without pain to improve ability to push up when transferring from sit to stand at EOB or from chair. STG: to be met in 2-3 visits. Demonstrate full fist without pain, necessary to steel layout worker objects during ADLs, such clothing to button and open fasteners documented in this encounter Plan of Treatment Upcoming Encounters Date Type Department Care Team (Late st Contact Info) Description 11/27/2024 1:30 PM EDT Office Visit [facility] [address] [place] [address] Georgiana Hutchinson 12/01/2024 11:00 AM EDT Office Visit [facility] [address] [place] [address] Fredy Bridges MD [address] [place] [phone] 02/16/2025 8:00 AM EDT Office Visit [facility] [address] [place] [address] Eduardo Ho MD [address] [place] [phone] documented as of this encounter Goals Goal Patient Goal Type Associated Problems Recent Progress Patient-Stated? Author STG: to be met in 2-3 visits. Occupational Therapy On track(2024 2:47 PM EDT) No Georgiana Hutchinson Note: Demonstrate full fist without pain, necessary to steel layout worker objects during ADLs, such clothing to button and open fasteners LTG: to be met in 4-6 visits Occupational Therapy On track(2024 2:47 PM EDT) No Georgiana Hutchinson Note: Pt will imrpove QDASH score to <20% in order to quantify patient percieved improvement in function by discharge Improve steel layout worker strength to 70% of UUE necessary for ability to steel layout worker and lift objects during IADL tasks such as broom,scrub brushes Demonstrate ability to weight bear on hand without pain to improve ability to push up when transferring from sit to stand at EOB or from chair. documented as of this encounter Visit Diagnoses Diagnosis Carpal tunnel syndrome, left- Primary Carpal tunnel syndrome documented in this encounter Additional Health Concerns Assessment Noted Time PHQ-9 Depression Total Score: 0 09/09/19 25 8:39 AM EDT A fall risk assessment has been complete d for the patient 09/08/2024 8:39 AM EDT A Body Mass Index follow-up plan has been documented for the patient 10/06/2024 8:57 PM EDT documented as of this encounter Care Teams Front Office Coordinator Relationship Specialty Start Date End Date Genet Gusman APRN [address] [place] [id number] PCP - General 05/08/23 Georgiana Palomares, RN [facility] Registered Nurse Bariatrics 01/31/24 documented as of this encounter
--- OUTSIDE RECORDS SUMMARY | 2024-10-16 13:30 | XMS_ITS | Encounter Summary ---
Author Organization [facility] Address [address] [place] [address] Care Team Providers Care Engineer Automated Equipment Name Role Phone Genet Gusman APRN Primary Care Provider [phone] Georgiana Palomares RN Unavailable Unavailable Reason for Visit * Consultation (Routine) - Authorized Specialty Diagnoses / Procedures Referred By Gladis acosta Referred To Contact Occupational Therapy Diagnoses Carpal tunnel syndrome, left Jatinder Rodriguez MD [address] [address] Phone: tel: fax: Referral ID Status Reason Start Date Expiration Date Visits Requested Visits Authorized [id number] Authorized Specialty Services Required 10/06/2024 04/07/2026 1 16 Encounter Details Date Type Department Care Team (Late st Contact Info) Description 10/16/2024 1:30 PM EDT Office Visit [facility] [address] [place] [phone] Georgiana Hutchinson Carpal tunnel syndrome, left (Primary [...] Progress Notes - Georgiana Hutchinson E - 10/16/2024 1:30 PM EDT [facility] Occupational Therapy Hand Evaluation Date: 10/16/24 Name: Teresa Paiz : 1990 Diagnosis: Encounter Diagnosis Name Primary? Carpal tunnel syndrome, left Yes Time in: 1:35 pm Time out: 2:25 pm Reason for Referral: CTS- Left Evaluate [...] accompanied by: self Diagnostic Testing: none SUBJECTIVE 10.16.24- I'm game for anything to try to make it not hurt. 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 9/10 R)16 Lat P L)14 R)20 2pt P L) 14 P! 9/10 R)18 1pt L)12 Special Tests: TTP! Over pisiform, and pain along ulnar side of forearm. Other Assessments: N/A Modalities: Paraffin: 10 minutes to left Wrist, Hand, and Fingers. Procedure/Treatment Manual Therapy (83523): 20 minutes to left Wrist, Hand, and Fingers IAS soft tissue massage of scar, KTAPE of ulnar side of wrist, updated above measures, Dry Needling (used in conjunction to ESTIM). ESTIM x 15 min (20 min set up/clean up) Pt Position: Seated at table, forearm supported by bolster; elbow at 90 [id number], . 2x-18 x 15mm Sites x 6( 4 along ECU x .30x30, 2 at disal ulna .18x15) 2 Channel Electric Stimulation at following settings; Channel 1: Intenity 4; Channel 2: 3 Intensity: All needles wound at start Duration x 20 min (including set up) Estim x 15 min Risks/Benefits were explained and questions answered. Pt agreed to proceed with dry needling. Written consent was obtained. Skin was prepped with 70% isopropyl alcohol wipe, and allowed to dry; [place] were inserted in 6 sites. Pt tolerated well. [place] were removed after 15 min, and patient sat for 5 min before ambulating from clinic independently No adverse reactions noted during or after Education Performed: Patient was educated in the [...] of the upper extremity Functional pinch Functional yarn mercerizer operator helper Translation of objects in palm. ASSESSMENT Teresa Paiz is a 34 y.o. female who returns with previous compliant of L wrist pain at base of carpus down into forearm. Pt demonstrates continued pain at pisiform and into forearm with little relief. She continues to wear brace (ulnar based wrist cock up) and endorses support from KTAPE. Tolerated soft tissue mobilization well today. Did trial dry needling today and was well tolerated. MLFs: At risk for scar adherence, Increased edema, Decrease ROM, Extrinsic tightness, Intrinsic tightness, Muscle guarding, and Decreased strength decreasing functional performance in meaningful occupations. Skilled therapy is appropriate at this time to address these impairments. Primary Language: Citizen Of [place] Needs communication device: No Does the patient understand basic information? Yes, able to self manage. Barriers to learning: None Barriers to Rehabilitation: None Cultural/Christianity beliefs: None that will affect treatment PLAN Continue current POC; progress as tolerated. Treatment may include patient education, position needs [...] percieved improvement in function by discharge Improve yarn mercerizer operator helper strength to 70% of UUE necessary for ability to yarn mercerizer operator helper and lift objects during IADL tasks such as broom,scrub brushes Demonstrate ability to weight bear on hand without pain to improve ability to push up when transferring from sit to stand at EOB or from chair. STG: to be met in 2-3 visits. Demonstrate full fist without pain, necessary to yarn mercerizer operator helper objects during ADLs, such clothing to button and open fasteners documented in this encounter Plan of Treatment Upcoming Encounters Date Type Department Care Team (Late st Contact Info) Description 11/27/2024 1:30 PM EDT Office Visit [facility] [address] [place], [place] [address] [address] Georgiana Hutchinson 12/01/2024 11:00 AM EDT Office Visit [facility] [address] [place] [phone] Fredy Bridges MD [address] [phone] 02/16/2025 8:00 AM EDT Office Visit [facility] [address] [place] [address] Eduardo Ho MD [address] [place] [phone] documented as of this encounter Goals Goal Patient Goal Type Associated Problems Recent Progress Patient-Stated? Author STG: to be met in 2-3 visits. Occupational Therapy On track(2024 2:47 PM EDT) No Georgiana Hutchinson Note: Demonstrate full fist without pain, necessary to yarn mercerizer operator helper objects during ADLs, such clothing to button and open fasteners LTG: to be met in 4-6 visits Occupational Therapy On track(2024 2:47 PM EDT) Georgiana Richardson Note: Pt will imrpove QDASH score to <20% in order to quantify patient percieved improvement in function by discharge Improve yarn mercerizer operator helper strength to 70% of UUE necessary for ability to yarn mercerizer operator helper and lift objects during IADL tasks such [...] plan has been documented for the patient 10/16/2024 3:03 PM EDT documented as of this encounter Care Teams Engineer Automated Equipment Relationship Specialty Start Date End Date Genet Gusman APRN [address] [place] [address] PCP - General 05/08/23 Georgiana Palomares RN [facility] Registered Nurse Bariatrics 01/31/24 documented as of this encounter
--- OUTSIDE RECORDS SUMMARY | 2024-10-29 13:30 | XMS_ITS | Encounter Summary ---
Author Organization [facility] Address [address] [place] [address] Care Team Providers Care Full Stack Net Developer Name Role Phone Genet Gusman APRN Primary Care Provider + [phone] Georgiana Palomares RN Unavailable Unavailable Reason for Visit * Consultation (Routine) - Authorized Specialty Diagnoses / Procedures Referred By Gladis acosta Referred To Contact Occupational Therapy Diagnoses Carpal tunnel syndrome, left Jatinder Rodriguez MD [address] [address] Phone: tel: fax: Referral ID Status Reason Start Date Expiration Date Visits Requested Visits Authorized [id number] Authorized Specialty Services Required 10/06/2024 04/07/2026 1 16 Encounter Details Date Type Department Care Team (Late st Contact Info) Description 10/29/2024 1:30 PM EDT Office Visit [facility] [address] [place] [phone] Georgiana Hutchinson Carpal tunnel syndrome, left (Primary [...] Progress Notes - Georgiana Hutchinson E - 10/29/2024 1:30 PM EDT Images from the original note were not included. 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 Edema (circumferential in cm) unremarkable Sensation: All 2.83 Volar & Dorsal, Strength: N.T. Special Tests: TTP! Over pisiform, and pain along ulnar side of forearm. Other Assessments: N/A Modalities: Paraffin: 10 minutes to left Wrist, Hand, and Fingers. Procedure/Treatment Manual Therapy (20094): 25 minutes to left Wrist, Hand, and Fingers IAS soft tissue massage of scar, KTAPE of ulnar side of wrist, updated above measures, Dry Needling (used in conjunction to ESTIM). ESTIM x 15 min (20 min set up/clean up) Pt Position: Seated at table, forearm supported by bolster; elbow at 90 Needle:.[id number], . 2x-18 x 15mm Sites x 6( [...] isopropyl alcohol wipe, and allowed to dry; [place] were inserted in 6 sites. Pt tolerated well. [place] were removed after 15 min, and patient [...] of the upper extremity Functional pinch Functional senior corporate recruiter Translation of objects in palm. ASSESSMENT Teresa Paiz is a 34 y.o. female who returns with previous compliant of L wrist pain at base of carpus down into forearm. Pt demonstrates continued pain at pisiform and into forearm with little relief. She continues to wear brace (ulnar based wrist cock up) and endorses support from KTAPE. Tolerated soft tissue mobilization well today. Continuedl dry needling today and was well tolerated. MLFs: At risk for scar adherence, Increased edema, Decrease ROM, Extrinsic tightness, Intrinsic tightness, Muscle guarding, and Decreased strength decreasing functional performance in meaningful occupations. Skilled therapy is appropriate at this time to address these impairments. PLAN Continue current POC; progress as tolerated. [...] percieved improvement in function by discharge Improve senior corporate recruiter strength to 70% of UUE necessary for ability to senior corporate recruiter and lift objects during IADL tasks such as broom,scrub brushes Demonstrate ability to weight bear on hand without pain to improve ability to push up when transferring from sit to stand at EOB or from chair. STG: to be met in 2-3 visits. Demonstrate full fist without pain, necessary to senior corporate recruiter objects during ADLs, such clothing to button and open fasteners documented in this encounter Plan of Treatment Upcoming Encounters Date Type Department Care Team (Late st Contact Info) Description 11/27/2024 1:30 PM EDT Office Visit [facility] [address] [place] [address] Georgiana Hutchinson 12/01/2024 11:00 AM EDT Office Visit [facility] [address] [place] [address] Fredy Bridges MD [address] [place] [phone] 02/16/2025 8:00 AM EDT Office Visit [facility] [address] [place] [address] Eduardo Ho MD [address] [phone] documented as of this encounter Goals Goal Patient Goal Type Associated Problems Recent Progress Patient-Stated? Author STG: to be met in 2-3 visits. Occupational Therapy On track(2024 2:47 PM EDT) No Georgiana Hutchinson Note: Demonstrate full fist without pain, necessary to senior corporate recruiter objects during ADLs, such clothing to button and open fasteners LTG: to be met in 4-6 visits Occupational Therapy On track(2024 2:47 PM EDT) No Georgiana Hutchinson Note: Pt will imrpove QDASH score to <20% in order to quantify patient percieved improvement in function by discharge Improve senior corporate recruiter strength to 70% of UUE necessary for ability to senior corporate recruiter and lift objects during IADL tasks such [...] plan has been documented for the patient 10/29/2024 3:34 PM EDT documented as of this encounter Care Teams Full Stack Net Developer Relationship Specialty Start Date End Date Genet Gusman APRN [address] [place] [address] PCP - General 05/08/23 Georgiana Palomares, RN [facility] Registered Nurse Bariatrics 01/31/24 documented as of this encounter
--- OUTSIDE RECORDS SUMMARY | 2024-11-03 13:30 | XMS_ITS | Encounter Summary ---
Author Organization [facility] Address [address] [place] [address] Care Team Providers Care Health Sciences Dean Name Role Phone Genet Gusman APRN Primary Care Provider [phone] Georgiana Palomares RN Unavailable Unavailable Reason for Visit * Consultation (Routine) - Authorized Specialty Diagnoses / Procedures Referred By Gladis acosta Referred To Contact Occupational Therapy Diagnoses Carpal tunnel syndrome, left Jatinder Rodriguez MD [address] [address] Phone: tel: fax: Referral ID Status Reason Start Date Expiration Date Visits Requested Visits Authorized [id number] Authorized Specialty Services Required 10/06/2024 04/07/2026 1 16 Encounter Details Date Type Department Care Team (Late st Contact Info) Description 11/03/2024 1:30 PM EDT Office Visit [facility] Hand Therapy [address] [place] [phone] Georgiana Hutchinson Carpal tunnel syndrome, left (Primary [...] Progress Notes - Georgiana Hutchinson E - 11/03/2024 1:30 PM EDT [facility] Occupational Therapy Hand Treatment Date: 11/03/24 Name: Teresa Paiz : 1990 Diagnosis: Encounter Diagnosis Name Primary? 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 Procedure/Treatment Manual Therapy (90514): 15 minutes to left Wrist, Hand, and Fingers IAS soft tissue massage of scar, KTAPE of ulnar side of wrist, updated above measures, Dry Needling (used in conjunction to ESTIM). ESTIM x 15 min (20 min set up/clean up) Pt Position: Seated at table, forearm supported by bolster; elbow at 90 Needle:.[id number], . 2x-18 x 15mm Sites x 7( 4 along ECU x .30x30, 2 at [...] isopropyl alcohol wipe, and allowed to dry; [place] were inserted in 6 sites. Pt tolerated well. [place] were removed after 15 min, and patient [...] of the upper extremity Functional pinch Functional medical records receptionist Translation of objects in palm. ASSESSMENT Teresa [...] percieved improvement in function by discharge Improve medical records receptionist strength to 70% of UUE necessary for ability to medical records receptionist and lift objects during IADL tasks such as broom,scrub brushes Demonstrate ability to weight bear on hand without pain to improve ability to push up when transferring from sit to stand at EOB or from chair. STG: to be met in 2-3 visits. Demonstrate full fist without pain, necessary to medical records receptionist objects during ADLs, such clothing to button and open fasteners documented in this encounter Plan of Treatment Upcoming Encounters Date Type Department Care Team (Late st Contact Info) Description 11/27/2024 1:30 PM EDT Office Visit [facility] [address] [place] [address] Georgiana Hutchinson 12/01/2024 11:00 AM EDT Office Visit [facility] [address] [place] [address] Fredy Bridges MD [address] [address] 02/16/2025 8:00 AM EDT Office Visit [facility] [address] [place] [address] Eduardo Ho MD [address] [address] documented as of this encounter Goals Goal Patient Goal Type Associated Problems Recent Progress Patient-Stated? Author STG: to be met in 2-3 visits. Occupational Therapy On track(2024 2:47 PM EDT) No Georgiana Hutchinson Note: Demonstrate full fist without pain, necessary to medical records receptionist objects during ADLs, such clothing to button and open fasteners LTG: to be met in 4-6 visits Occupational Therapy On track(2024 2:47 PM EDT) No Georgiana Hutchinson Note: Pt will imrpove QDASH score to <20% in order to quantify patient percieved improvement in function by discharge Improve medical records receptionist strength to 70% of UUE necessary for ability to medical records receptionist and lift objects during IADL tasks such [...] plan has been documented for the patient 11/03/2024 3:50 PM EDT documented as of this encounter Care Teams Health Sciences Dean Relationship Specialty Start Date End Date Genet Gusman APRN [address] [place] [address] PCP - General 05/08/23 Georgiana Palomares, RN [facility] Registered Nurse Bariatrics 01/31/24 documented as of this encounter
--- OUTSIDE RECORDS SUMMARY | 2024-11-13 13:30 | XMS_ITS | Encounter Summary ---
Author Organization [facility] Address [address] [place] [address] Care Team Providers Care Forms Examiner Name Role Phone Genet Gusman APRN Primary Care Provider [phone] Georgiana Palomares RN Unavailable Unavailable Reason for Visit * Consultation (Routine) - Authorized Specialty Diagnoses / Procedures Referred By Gladis acosta Referred To Contact Occupational Therapy Diagnoses Carpal tunnel syndrome, left Jatinder Rodriguez MD [address] [address] Phone: tel: fax: Referral ID Status Reason Start Date Expiration Date Visits Requested Visits Authorized [id number] Authorized Specialty Services Required 10/06/2024 04/07/2026 1 16 Encounter Details Date Type Department Care Team (Late st Contact Info) Description 11/13/2024 1:30 PM EDT Office Visit [facility] Hand Therapy [address] [place] [phone] Georgiana Hutchinson Carpal tunnel syndrome, left (Primary [...] Progress Notes - Georgiana Hutchinson E - 11/13/2024 1:30 PM EDT [facility] Occupational Therapy Hand Treatment Date: 11/13/24 Name: Teresa Paiz : 1990 Diagnosis: Encounter Diagnosis Name Primary? Carpal tunnel syndrome, left Yes Time in: 1:27 pm Time out: 2:21 pm Reason for [...] by: self Diagnostic Testing: none SUBJECTIVE 7..25- It is worse than it has been. 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 Procedure/Treatment Manual Therapy (49238): 23 minutes to left Wrist, Hand, and Fingers IAS soft tissue massage of scar, KTAPE of ulnar side of wrist, updated above measures. Dry Needling (used in conjunction to ESTIM). ESTIM x 15 min (20 min set up/clean up) Pt Position: Seated at table, forearm supported by bolster; elbow at 90 Needle:.[id number], . 2x-18 x 15mm Sites x 7( 4 along ECU x .30x30, 2 at disal ulna .18x15) 2 Channel Electric Stimulation at following settings; Channel 1: Intenity 4; Channel 2: 0 Intensity: All needles wound at start Duration x 20 min (including set up) Estim x 15 min Risks/Benefits were explained and questions answered. Pt agreed to proceed with dry needling. Written consent was obtained. Skin was prepped with 70% isopropyl alcohol wipe, and allowed to dry; [place] were inserted in 6 sites. Pt tolerated well. [place] were removed after 15 min, and patient [...] of the upper extremity Functional pinch Functional field collector Translation of objects in palm. ASSESSMENT Teresa [...] percieved improvement in function by discharge Improve field collector strength to 70% of UUE necessary for ability to field collector and lift objects during IADL tasks such as broom,scrub brushes Demonstrate ability to weight bear on hand without pain to improve ability to push up when transferring from sit to stand at EOB or from chair. STG: to be met in 2-3 visits. Demonstrate full fist without pain, necessary to field collector objects during ADLs, such clothing to button and open fasteners documented in this encounter Plan of Treatment Upcoming Encounters Date Type Department Care Team (Late st Contact Info) Description 11/27/2024 1:30 PM EDT Office Visit [facility] [address] [place] [address] Georgiana Hutchinson 12/01/2024 11:00 AM EDT Office Visit [facility] [address] [place] [address] Fredy Bridges MD [address] [place] [address] 02/16/2025 8:00 AM EDT Office Visit [facility] & Weight [facility] Surgery [address] [place] [address] Eduardo Ho MD [address] [address] documented as of this encounter Goals Goal Patient Goal Type Associated Problems Recent Progress Patient-Stated? Author STG: to be met in 2-3 visits. Occupational Therapy On track(2024 2:47 PM EDT) No Georgiana Hutchinson Note: Demonstrate full fist without pain, necessary to field collector objects during ADLs, such clothing to button and open fasteners LTG: to be met in 4-6 visits Occupational Therapy On track(2024 2:47 PM EDT) No Georgiana Hutchinson Note: Pt will imrpove QDASH score to <20% in order to quantify patient percieved improvement in function by discharge Improve field collector strength to 70% of UUE necessary for ability to field collector and lift objects during IADL tasks such [...] Time PHQ-9 Depression Total Score: 0 09/09/19 8:39 AM EDT A fall risk assessment has been complete d for the patient 09/08/2024 8:39 AM EDT A Body Mass Index follow-up plan has been documented for the patient 11/13/2024 2:36 PM EDT documented as of this encounter Care Teams Forms Examiner Relationship Specialty Start Date End Date Genet Gusman APRN [address] [place] [address] PCP - General 05/08/23 Georgiana Palomares, RN [facility] Registered Nurse Bariatrics 01/31/24 documented as of this encounter
--- OUTSIDE RECORDS SUMMARY | 2024-11-18 07:20 | XMS_ITS | Encounter Summary ---
Author Organization [facility] Address [address] [place] [address] Care Team Providers Care Customer Experience Analyst Name Role Phone Genet Gusman APRN Primary Care Provider [phone] Georgiana Palomares RN Unavailable Unavailable Reason for Referral * Imaging (Urgent) - Closed Specialty Diagnoses / Procedures Referred By Contac t Referred To Contact Diagnoses Wrist pain, left Procedures MR Wrist Left wo IV Contrast Jatinder Rodriguez MD [address] [address] Phone: tel: fax: [facility] ([employer]) (ET) [address] [place] [address] Phone: tel: fax: Referral ID Status Reason Start Date Expiration Date Visits Re quested Visits Authorized [id number] Closed 03/23/2024 09/22/2025 1 1 Reason for Visit * Imaging (Urgent) - Closed Specialty Diagnoses / Procedures Referred By Contac t Referred To Contact Diagnoses Wrist pain, left Procedures MR Wrist Left wo IV Contrast Jatinder Rodriguez MD [address] [address] Phone: tel: fax: [facility] ([employer] (ET) [address] [place] [address] Phone: tel: fax: Referral ID Status Reason Start Date Expiration Date Visits Re quested Visits Authorized [id number] Closed 03/23/2024 09/22/2025 1 1 Encounter Details Date Type Department Care Team (Latest Contact Info) Description 11/18/2024 7:20 AM EDT - 11/18/2024 11:59 PM EDT Hospital Encounter [facility] [address] [place] [address] Wrist pain, left Discharge Disposition: Home or Self Care Social History Tobacco Use Types Packs/Day Years [...] on file documented as of this encounter Medications at Time of Discharge cetirizine (ZyrTEC) 10 MG tablet Take 1 tablet (10 mg) by mouth 1 (one) time each day. fluticasone (Flonase) 50 MCG/ACT nasal spray INSTILL 1 SPRAY INTO EACH NOSTRIL ONCE DAILY ibuprofen 800 MG tablet 03/25/2024 Lancets (OneTouch Delica Plus Rrrccx14O) misc USE DIRECTED 2 TIMES DAILY 05/21/2024 Multiple Vitamins-Minerals (Bariatric Multivitamins) capsule Take by mouth. OneTouch Ultra Test test strip use to test twice daily. 05/21/2024 documented as of this encounter Plan of Treatment Upcoming Encounters Date Type Department Care Team (Late st Contact Info) Description 11/27/2024 1:30 PM EDT Office Visit [facility] [address] [place] [address] Georgiana Hutchisnon 12/01/2024 11:00 AM EDT Office Visit [facility] [address] [place] [phone] Fredy Bridges MD [address] [address] 02/16/2025 8:00 AM EDT Office Visit [facility] [address] [place] [address] Eduardo Ho MD [address] [address] documented as of this encounter Goals Goal Patient Goal Type Associated Problems Recent Progress Patient-Stated? Author STG: to be met in 2-3 visits. Occupational Therapy On track(2024 2:47 PM EDT) No Georgiana Hutchinson Note: Demonstrate full fist without pain, necessary to airline station agent objects during ADLs, such clothing to button and open fasteners LTG: to be met in 4-6 visits Occupational Therapy On track(2024 2:47 PM EDT) No Georgiana Hutchinson Note: Pt will imrpove QDASH score to <20% in order to quantify patient percieved improvement in function by discharge Improve airline station agent strength to 70% of UUE necessary for ability to airline station agent and lift objects during IADL tasks such as broom,scrub brushes Demonstrate ability to weight bear on hand without pain to improve ability to push up when transferring from sit to stand at EOB or from chair. documented as of this encounter Procedures Procedure Name Priority Date/Time Associated Diagnosis Comments MR WRIST LEFT WO IV CONTRAST Routine 11/18/2024 8:36 AM EDT Wrist pain, left documented in this encounter Results * MR Wrist Left wo IV Contrast (11/18/2024 8:36 AM EDT) Anatomical Region Laterality Modality Abdomen Left Magnetic Resonan ce Impressions 11/18/2024 11:50 AM EDT Bowing of the flexor retinaculum with enlargement of the median nerve which can be seen with carpal tunnel syndrome. Unremarkable appearance of the ulnar nerve. Mild irregularity of the undersurface of the TFCC as well as thickening of the periphery of the TFC. Subtle fatty infiltration of the abductor digit minimi muscle. CRITICAL RESULT: No. COMMUNICATION: Per this written report. By electronically signing this report, I, the attending physician, attest that I have personally reviewed the images/data for the above examination(s) and agree with the final edited report. Drafted by Luis Roblero MD on 11/18/2024 8:49 AM Final report signed by Rafael Tabor MD on 11/18/2024 11:50 AM Narrative 11/18/2024 11:50 AM EDT CLINICAL INDICATION: Wrist pain, medial/ulnar, neg xray TECHNIQUE: Axial T1, axial T2 FS, coronal proton density, coronal T2 FS, sagittal T2 FS, coronal VIVEK. COMPARISON: Left hand and wrist radiographs 06/15/2024 Outside MRI left wrist without contrast 05/03/2024 FINDINGS: Bones and Joints: There is no fracture, AVN, or intraosseous lesion. The joint spaces are maintained. Cartilage: The cartilage is smoothly congruent without focal deficits. Carpal Tunnel: Bowing of the flexor retinaculum. Enlargement of the median nerve throughout the cubital tunnel. Tendons: The flexor and extensor tendons are intact without tendinopathy or tenosynovitis. Ligaments: The scapholunate and lunotriquetral ligaments are intact. Triangular Fibrocartilage: There is irregularity of the TFC disc. Some thickening of the periphery of the TFC. Soft Tissues: There is no evidence of muscle strain. Very minimal infiltration of the abductor digit minimi musculature. There is no joint effusion. There is no ganglion. Procedure Note Rafael Tabor MD - 11/18/2024 CLINICAL INDICATION: Wrist pain, medial/ulnar, neg xray TECHNIQUE: Axial T1, axial T2 FS, coronal proton density, coronal T2 FS, sagittal T2FS, coronal VIVEK. COMPARISON: Left hand and wrist radiographs 06/15/2024 Outside MRI left wrist without contrast 05/03/2024 FINDINGS: Bones and Joints: There is no fracture, AVN, or intraosseous lesion. Thejoint spaces are maintained. Cartilage: The cartilage is smoothly congruent without focal deficits. Carpal Tunnel: Bowing of the flexor retinaculum. Enlargement of the mediannerve throughout the cubital tunnel. Tendons: The flexor and extensor tendons are intact without tendinopathyor tenosynovitis. Ligaments: The scapholunate and lunotriquetral ligaments are intact. Triangular Fibrocartilage: There is irregularity of the TFC disc. Somethickening of the periphery of the TFC. Soft Tissues: There is no evidence of muscle strain. Very minimalinfiltration of the abductor digit minimi musculature. There is no jointeffusion. There is no ganglion. IMPRESSION: Bowing of the flexor retinaculum with enlargement of the median nervewhich can be seen with carpal tunnel syndrome. Unremarkable appearance of the ulnar nerve. Mild irregularity of the undersurface of the TFCC as well as thickening ofthe periphery of the TFC. Subtle fatty infiltration of the abductor digit minimi muscle. CRITICAL RESULT: No. COMMUNICATION: Per this written report. By electronically signing this report, I, the attending physician, karsten I have personally reviewed the images/data for the aboveexamination(s) and agree with the final edited report. Drafted by Luis Roblero MD on 11/18/2024 8:49 AM Final report signed by Rafael Tabor MD on 11/18/2024 11:50 AM Jatinder Rodriguez MD IMG MRI PROCEDURES Final Result documented in this encounter Visit Diagnoses Diagnosis Wrist pain, left Pain in joint, forearm documented in this encounter Additional Health Concerns Assessment Noted Time PHQ-9 Depression Total Score: 0 09/09/19 8:39 AM EDT A fall risk assessment has been complete d for the patient 09/08/2024 8:39 AM EDT A Body Mass Index follow-up plan has been documented for the patient 11/13/2024 2:36 PM EDT documented as of this encounter Care Teams Customer Experience Analyst Relationship Specialty Start Date End Date Genet Gusman APRN [address] [place] [address] PCP - General 05/08/23 Georgiana Palomares RN [facility] Registered Nurse Bariatrics 01/31/24 documented as of this encounter
--- OUTSIDE RECORDS SUMMARY | 2024-11-20 13:30 | XMS_ITS | Encounter Summary ---
Author Organization [facility] Address [address] [place] [address] Care Team Providers Care Recoil Spring Winder Name Role Phone Genet Gusman APRN Primary Care Provider [phone] Georgiana Palomares RN Unavailable Unavailable Reason for Visit * Consultation (Routine) - Authorized Specialty Diagnoses / Procedures Referred By Gladis acosta Referred To Contact Occupational Therapy Diagnoses Carpal tunnel syndrome, left Jatinder Rodriguez MD [address] [address] Phone: tel: fax: Referral ID Status Reason Start Date Expiration Date Visits Requested Visits Authorized [id number] Authorized Specialty Services Required 10/06/2024 04/07/2026 1 16 Encounter Details Date Type Department Care Team (Late st Contact Info) Description 11/20/2024 1:30 PM EDT Office Visit [facility] Hand Therapy [address] [place] [phone] Georgiana Hutchinson Carpal tunnel syndrome, left (Primary [...] Progress Notes - Georgiana Hutchinson E - 11/20/2024 1:30 PM EDT [facility] Occupational Therapy Hand Treatment Date: 11/20/24 Name: Teresa Paiz : 1990 Diagnosis: Encounter Diagnosis Name Primary? 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) Pain Location: Wrist, Hand, and Fingers Current Pain: 10/10 Highest Pain: 7/10 Lowest Pain: 8/10 Description of Pain: aching and sharp/stabbing Aggravating Factors: griping, WB, pressure on palm Alleviating Factors: taking Tylenol OBJECTIVE Active Motion: R)70 VF L)60 R)75 DF L)55 R)70 VC L)45 R)75 DC L)50 R)25 RD L)25 R)30 UD L)25 R)75 Pro L)75 R)75 Sup L)60 I M R S Fist 0 0 0 0 Hook 0 0 0 0 TH AROM: R)45 ABD L)45 R)55 EXT L)45 R)0cm DPC L)0cm R)10 KOS L)10 Edema (circumferential in cm) unremarkable Sensation: All 2.83 Volar & Dorsal (see [place] Carter in chart from 11.20.24) Strength: R)95 Service Parts Coordinator L)45 R)16 Lat P L)14 R)18 2pt P L)12 R)14 1pt P L)10 Special Tests: TTP! Over pisiform, and pain along ulnar side of forearm ditally TTP! Over pisoform- P! 10+/10 (+)Fovea (+) PRUL & DRUL (+)TFCC compression (-) LAD R)60 L)49 (-) Froments (+) Watenberg (-) Elbow flexio test Other Assessments: N/A Modalities: Paraffin: 10 minutes to left Wrist, Hand, and Fingers. Procedure/Treatment Manual Therapy (59958): 23 minutes to left Wrist, Hand, and Fingers [facility] soft tissue massage of scar, KTAPE of ulnar side of wrist, updated above measures. Dry Needling (used in conjunction to ESTIM). ESTIM x 15 min (20 min set up/clean up) Pt Position: Seated at table, forearm supported by bolster; elbow at 90 Needle:.[id number], . 3x-18 x 15mm Sites x 7( 4 along ECU x .30x30, 3 at disal ulna .18x15) 2 Channel Electric Stimulation at following settings; Channel 1: Intenity 3; Channel 2: 0 Intensity: All needles wound at start Duration x 20 min (including set up) Estim x 15 min Risks/Benefits were explained and questions answered. Pt agreed to proceed with dry needling. Written consent was obtained. Skin was prepped with 70% isopropyl alcohol wipe, and allowed to dry; [place] were inserted in 6 sites. Pt tolerated well. 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 ASSESSMENT Teresa Paiz is a 34 y.o. female who returns with previous compliant of L wrist pain at base of carpus down into forearm. Pt demonstrates continued pain at pisiform and into forearm with little relief. She reports that she had a big pop at the ulnar side of wrist while at work while lifting a child and her pain continues to worsen and limit daily activity. QDASH scores are trending up. She continues to wear brace (ulnar based wrist cock up) and endorses support from KTAPE. Tolerated soft tissue mobilization well today. Continuedl dry needling today and was well tolerated. Symptoms appear to be consistent with potential TFCC irritation and have had minimal response to therapy. In fact while she has good motion & sensation her strength has significantly decreased since IE last month. Pt to see MD for follow up on 11/23/24 and potential further medical management. MLFs: At risk for scar adherence, Increased edema, Decrease ROM, Extrinsic tightness, Intrinsic tightness, Muscle guarding, and Decreased strength decreasing functional performance in meaningful occupations. Skilled therapy is appropriate at this time to address these impairments. PLAN Follow per MD order, pending appointment on 11/23/24. Treatment may include patient education, position needs [...] percieved improvement in function by discharge Improve switchbox assembler strength to 70% of UUE necessary for ability to switchbox assembler and lift objects during IADL tasks such as broom,scrub brushes Demonstrate ability to weight bear on hand without pain to improve ability to push up when transferring from sit to stand at EOB or from chair. STG: to be met in 2-3 visits. Demonstrate full fist without pain, necessary to switchbox assembler objects during ADLs, such clothing to button and open fasteners documented in this encounter Plan of Treatment Upcoming Encounters Date Type Department Care Team (Late st Contact Info) Description 11/27/2024 1:30 PM EDT Office Visit TF [facility] [address] [place] [address] Georgiana Hutchinson 12/01/2024 11:00 AM EDT Office Visit [facility] [address] [place] [address] Fredy Bridges MD [address] [address] 02/16/2025 8:00 AM EDT Office Visit [facility] [address] [place] [address] Eduardo Ho MD [address] [address] documented as of this encounter Goals Goal Patient Goal Type Associated Problems Recent Progress Patient-Stated? Author STG: to be met in 2-3 visits. Occupational Therapy On track(2024 2:47 PM EDT) No Georgiana Hutchinson Note: Demonstrate full fist without pain, necessary to switchbox assembler objects during ADLs, such clothing to button and open fasteners LTG: to be met in 4-6 visits Occupational Therapy On track(2024 2:47 PM EDT) Georgiana Richardson Note: Pt will imrpove QDASH score to <20% in order to quantify patient percieved improvement in function by discharge Improve switchbox assembler strength to 70% of UUE necessary for ability to switchbox assembler and lift objects during IADL tasks such [...] plan has been documented for the patient 11/20/2024 2:48 PM EDT documented as of this encounter Care Teams Recoil Spring Winder Relationship Specialty Start Date End Date Genet Gusman APRN [address] [place] [address] PCP - General 05/08/23 Georgiana Palomares, RN [facility] Registered Nurse Bariatrics 01/31/24 documented as of this encounter
--- OUTSIDE RECORDS SUMMARY | 2024-11-23 08:40 | XMS_ITS | Encounter Summary ---
Author Organization [facility] Address [address] [place] [address] Care Team Providers Care Management Nurse Rn Name Role Phone UzmaGenet hood Dorcas DAVE Primary Care Provider Georgiana Palomares RN Unavailable Unavailable Reason for Visit * Reason Comments Follow-up Encounter Details Date Type Department Care Team (Late st Contact Info) Description 11/23/2024 8:40 AM EDT Office Visit [facility] [address] [place] [address] Jatinder Rodriguez MD [address] [address] Arrived Social History Tobacco Use Types Packs/Day Years [...] on file documented as of this encounter Last Filed Vital Signs Vital Sign Reading Time Taken Comments Blood Pressure 128/81 11/23/2024 8:31 AM EDT Pulse 66 11/23/2024 8:31 AM EDT Temperature 36.4 C (97.5 F) 11/23/2024 8:31 AM EDT Respiratory Rate - - Oxygen Saturation 100% 11/23/2024 8:31 AM EDT Inhaled Oxygen Concentration - - Weight 85.7 kg (189 lb) 11/23/2024 8:31 AM EDT Height - - Body Mass Index 30.97 09/08/2024 8:35 AM EDT documented in this encounter Plan of Treatment Upcoming Encounters Date Type Department Care Team (Late st Contact Info) Description 11/27/2024 1:30 PM EDT Office Visit TF [facility] Hand Therapy [address] [place] [address] Georgiana Hutchinson 12/01/2024 11:00 AM EDT Office Visit [facility] [address] [place] [address] [place] [address] [place] [address] 02/16/2025 8:00 AM EDT Office Visit [facility] General & Weight Loss Surgery [address] [place] [address] Eduardo Ho MD [address] [address] documented as of this encounter Goals Goal Patient Goal Type Associated Problems Recent Progress Patient-Stated? Author STG: to be met in 2-3 visits. Occupational Therapy On track(2024 2:47 PM EDT) Georgiana Richardson Note: Demonstrate full fist without pain, necessary to marketing production specialist objects during ADLs, such clothing to button and open fasteners LTG: to be met in 4-6 visits Occupational Therapy On track(2024 2:47 PM EDT) Georgiana Richardson Note: Pt will imrpove QDASH score to <20% in order to quantify patient percieved improvement in function by discharge Improve marketing production specialist strength to 70% of UUE necessary for ability to marketing production specialist and lift objects during IADL tasks such as broom,scrub brushes Demonstrate ability to weight bear on hand without pain to improve ability to push up when transferring from sit to stand at EOB or from chair. documented as of this encounter Visit Diagnoses Not on filedocumented in this encounter Additional Health Concerns Assessment Noted Time PHQ-9 Depression Total Score: 0 09/09/19 25 8:39 AM EDT A fall risk assessment has been complete d for the patient 09/08/2024 8:39 AM EDT A Body Mass Index follow-up plan has been documented for the patient 11/23/2024 8:55 AM EDT documented as of this encounter Care Teams Management Nurse Rn Relationship Specialty Start Date End Date Genet Gusman APRN [address] [place] [address] PCP - General 05/08/23 Georgiana Palomares RN [facility] Registered Nurse Bariatrics 01/31/24 documented as of this encounter
[2024-11-23 13:41] VITALS: BP 150/94; PULSE 67; RESP 20; TEMP 37.4; O2SAT 99; BMI 29.9
--- OUTSIDE RECORDS SUMMARY | 2024-11-23 13:41 | XMS_ITS | Encounter Summary ---
Author Organization Healthcare Address [address] [place] [address] Care Team Providers Care Car Salter Name Role Phone UzmaGenet hood Dorcas DAVE Primary Care Provider Georgiana Palomares RN Unavailable Unavailable Encounter Details Date Type Department Care Team (Latest Contact Info) Description 09/30/2024 Travel Social History Tobacco Use Types Packs/Day Years [...] on file documented as of this encounter Plan of Treatment Upcoming Encounters Date Type Department Care Team (Late st Contact Info) Description 11/27/2024 1:30 PM EDT Office Visit [facility] [address] [place] [address] Georgiana Hutchinson 12/01/2024 11:00 AM EDT Office Visit [facility] [address] [place] [address] Fredy Bridges MD [address] [phone] 02/16/2025 8:00 AM EDT Office Visit [facility] General & Weight Loss Surgery [address] [place] [address] Eduardo Ho MD [address] [address] documented as of this encounter Goals Goal Patient Goal Type Associated Problems Recent Progress Patient-Stated? Author STG: to be met in 2-3 visits. Occupational Therapy On track(2024 2:47 PM EDT) No Georgiana Hutchinson Note: Demonstrate full fist without pain, necessary to encapsulator objects during ADLs, such clothing to button and open fasteners LTG: to be met in 4-6 visits Occupational Therapy On track(2024 2:47 PM EDT) No Georgiana Hutchinson Note: Pt will imrpove QDASH score to <20% in order to quantify patient percieved improvement in function by discharge Improve encapsulator strength to 70% of UUE necessary for ability to encapsulator and lift objects during IADL tasks such [...] plan has been documented for the patient 09/08/2024 9:37 AM EDT documented as of this encounter Care Teams Car Salter Relationship Specialty Start Date End Date Gneet Gusman APRN [address] [place] [address] PCP - General 05/08/23 Georgiana Palomares, RN [facility] Registered Nurse Bariatrics 01/31/24 documented as of this encounter
--- OUTSIDE RECORDS SUMMARY | 2024-11-23 13:41 | XMS_ITS | Encounter Summary ---
Author Organization [facility] Address [address] [place] [address] Care Team Providers Care Press Operator Helper Name Role Phone Genet Gusman ACCOUNTS RECEIVABLE COLLECTOR Primary Care Provider Georgiana Palomares RN Unavailable Unavailable Encounter Details Date Type Department Care Team (Late Contact Info) Description 05/03/2024 Orders Only External Location [address] [place] [address] Jatinder Rodriguez MD [address] [phone] Social History Tobacco Use Types Packs/Day Years Used Date Smoking Tobacco: Former Cigarettes Q uit: 2010 Smokeless Tobacco: Never Alcohol Use Standard Drinks/Week Comments Never 0 (1 standard drink = 0.6 oz pur e alcohol) PHQ-2 Answer Date Recorded Patient Health Questionnaire-2 Score 0 04/01/2024 Comments No Sex and Gender Information Value Date Recorded Sex Assigned at Not on file Legal Sex Female 6:31 PM EDT Gender Identity Not on file Sexual Orientation Not on file documented as of this encounter Plan of Treatment Upcoming Encounters Date Type Department Care Team (Late Contact Info) Description 11/27/2024 1:30 PM EDT Office Visit TF [facility] [address] [place] [address] Georgiana Hutchinson 12/01/2024 11:00 AM EDT Office Visit [facility] [address] [place] [address] Fredy Bridges MD [address] [address] 02/16/2025 8:00 AM EDT [facility] General [facility] [address] [place] [address] Eduardo Ho MD [address] [address] documented as of this encounter Goals Goal Patient Goal Type Associated Problems Recent Progress Patient-Stated? Author STG: to be met in 2-3 visits. Occupational Therapy On track(2024 2:47 PM EDT) No Georgiana Hutchinson Note: Demonstrate full fist without pain, necessary to all around patternmaker objects during ADLs, such clothing to button and open fasteners LTG: to be met in 4-6 visits Occupational Therapy On track(2024 2:47 PM EDT) Georgiana Richardson Note: Pt will imrpove QDASH score to <20% in order to quantify patient percieved improvement in function by discharge Improve all around patternmaker strength to 70% of UUE necessary for ability to all around patternmaker and lift objects during IADL tasks such as broom,scrub brushes Demonstrate ability to weight bear on hand without pain to improve ability to push up when transferring from sit to stand at EOB or from chair. documented as of this encounter Procedures Procedure Name Priority Date/Time Associated Diagnosis Comments MR MSK OUTSIDE IMAGES 05/03/2024 8:39 AM EST documented in this encounter Results * MR MSK OUTSIDE IMAGES (05/03/2024 8:39 AM EST) Anatomical Region Laterality Modality Magnetic Resonan ce 05/03/2024 8:39 AM EST Jatinder Rodriguez MD IMG MRI PROCEDURES Final Result documented in this encounter Visit Diagnoses Not on filedocumented in this encounter Additional Health Concerns Assessment Noted Time A fall risk assessment has been complete d for the patient 04/01/2024 8:13 AM EST A Body Mass Index follow-up plan has been documented for the patient 05/01/2024 3:50 PM EST documented as of this encounter Care Teams Press Operator Helper Relationship Specialty Start Date End Date Genet Gusman APRN [address] [place], [place] [id number] PCP - General 05/08/23 Georgiana Palomares RN [facility] Registered Nurse Bariatrics 01/31/24 documented as of this encounter
--- OUTSIDE RECORDS SUMMARY | 2024-11-23 13:41 | XMS_ITS | Encounter Summary ---
Author Organization Healthcare Address [address] [place] [address] Care Team Providers Care Interactive Project Manager Name Role Phone Genet Gusman TENZIN Primary Care Provider Georgiana Palomares RN Unavailable Unavailable Encounter Details Date Type Department Care Team (Late st Contact Info) Description 07/28/2024 Orders Only [facility] [address] [place] [address] Christiano Pierre MD [address] [place] [address] Wrist pain, left (Primary Dx) Social History Tobacco Use Types Packs/Day Years Used Date Smoking Tobacco: Former Cigarettes Q uit: 2010 Smokeless Tobacco: Never Alcohol Use Standard Drinks/Week Comments Never 0 (1 standard drink = 0.6 oz pur e alcohol) PHQ-2 Answer Date Recorded Patient Health Questionnaire-2 Score 0 05/19/2024 PHQ-9 Answer Date Recorded Patient Health Questionnaire-9 Score 0 05/19/2024 Comments No Sex and Gender Information Value [...] [facility] [address] [place] [address] Georgiana Hutchinson 12/01/2024 11:00 AM EDT Office Visit [facility] [address] [place] [address] Fredy Bridges MD [address] [address] 02/16/2025 8:00 AM EDT [facility] [address] [place] [address] Eduardo Ho MD [address] [address] documented as of this encounter Goals Goal Patient Goal Type Associated Problems Recent Progress Patient-Stated? Author STG: to be met in 2-3 visits. Occupational Therapy On track(2024 2:47 PM EDT) No Georgiana Hutchinson Note: Demonstrate full fist without pain, necessary to licensed architect objects during ADLs, such clothing to button and open fasteners LTG: to be met in 4-6 visits Occupational Therapy On track(2024 2:47 PM EDT) No Georgiana Hutchinson Note: Pt will imrpove QDASH score to <20% in order to quantify patient percieved improvement in function by discharge Improve licensed architect strength to 70% of UUE necessary for ability to licensed architect and lift objects during IADL tasks such as broom,scrub brushes Demonstrate ability to weight bear on hand without pain to improve ability to push up when transferring from sit to stand at EOB or from chair. documented as of this encounter Visit Diagnoses Diagnosis Wrist pain, left- Primary Pain in joint, forearm documented in this encounter Additional Health Concerns Assessment Noted Time PHQ-9 Depression Total Score: 0 05/19/19 25 9:31 AM EST A fall risk assessment has been complete d for the patient 07/27/2024 9:47 AM EDT A Body Mass Index follow-up plan has been documented for the patient 07/27/2024 10:19 AM EDT documented as of this encounter Care Teams Interactive Project Manager Relationship Specialty Start Date End Date Genet Gusman APRN [address] [place] [address] PCP - General 05/08/23 Georgiana Palomares RN [facility] Registered Nurse Bariatrics 01/31/24 documented as of this encounter
--- OUTSIDE RECORDS SUMMARY | 2024-11-23 13:42 | XMS_ITS | Encounter Summary ---
Author Organization [facility] Address [address] [place] [address] Care Team Providers Care Seasoner Hand Name Role Phone Uzam Genet Toscano APRN Primary Care Provider [phone] Georgiana Palomares RN Unavailable Unavailable Reason for Referral * Consultation (Routine) - Authorized Specialty Diagnoses / Procedures Referred By Gladis acosta Referred To Contact Occupational Therapy Diagnoses Carpal tunnel syndrome, left Jatinder Rodriguez MD [address] [place] [address] Phone: tel: fax: Referral ID Status Reason Start Date Expiration Date Visits Requested Visits Authorized [id number] Authorized Specialty Services Required 10/06/2024 04/07/2026 1 16 Encounter Details Date Type Department Care Team (Late st Contact Info) Description 10/06/2024 Orders Only [facility] [address] [place] [address] Jatinder Rodriguez MD [address] [place] [address] Carpal tunnel syndrome, left (Primary Dx) Social [...] [facility] [address] [place] [address] Georgiana Hutchinson 12/01/2024 11:00 AM EDT Office Visit [facility] [address] [place] [address] Fredy Bridges MD [address] [address] 02/16/2025 8:00 AM EDT Office Visit [facility] [address] [place] [address] Eduardo Ho MD [address] [address] Scheduled Referrals Name Type Priority Associated Diagnoses Orde r Schedule Hand Therapy Outpatient Referral Routine Carpal tunnel syndrome, left Expected: 10/06/2024 (Approximate), Expires: 04/09/2026 documented as of this encounter Goals Goal Patient Goal Type Associated Problems Recent Progress Patient-Stated? Author STG: to be met in 2-3 visits. Occupational Therapy On track(2024 2:47 PM EDT) No Georgiana Hutchinson Note: Demonstrate full fist without pain, necessary to table games floor supervisor objects during ADLs, such clothing to button and open fasteners LTG: to be met in 4-6 visits Occupational Therapy On track(2024 2:47 PM EDT) No Georgiana Hutchinson Note: Pt will imrpove QDASH score to <20% in order to quantify patient percieved improvement in function by discharge Improve table games floor supervisor strength to 70% of UUE necessary for ability to table games floor supervisor and lift objects during IADL tasks such [...] documented as of this encounter Care Teams Seasoner Hand Relationship Specialty Start Date End Date Genet Gusman APRN [address] [place] [address] PCP - General 05/08/23 Georgiana Palomares RN [facility] Registered Nurse Bariatrics 01/31/24 documented as of this encounter
--- OUTSIDE RECORDS SUMMARY | 2024-11-23 13:42 | XMS_ITS | Encounter Summary ---
Author Organization Healthcare Address [address] [place] [address] Care Team Providers Care Assembler Filters Name Role Phone [employer]zma[employer]et hood Dorcas DAVE Primary Care Provider Georgiana Palomares RN Unavailable Unavailable Encounter Details Date Type Department Care Team (Latest Contact Info) Description 10/06/2024 Travel Social History Tobacco Use Types Packs/Day [...] [facility] [address] [place] [address] Georgiana Hutchinson 12/01/2024 11:00 AM EDT Office Visit [facility] [address] [place] [phone] Fredy Bridges MD [address] [phone] 02/16/2025 8:00 AM EDT Office Visit [facility] [address] [place] [address] Eduardo Ho MD [address] [phone] documented as of this encounter Goals Goal Patient Goal Type Associated Problems Recent Progress Patient-Stated? Author STG: to be met in 2-3 visits. Occupational Therapy On track(2024 2:47 PM EDT) No Georgiana Hutchinson Note: Demonstrate full fist without pain, necessary to reconcilement clerk objects during ADLs, such clothing to button and open fasteners LTG: to be met in 4-6 visits Occupational Therapy On track(2024 2:47 PM EDT) No Georgiana Hutchinson Note: Pt will imrpove QDASH score to <20% in order to quantify patient percieved improvement in function by discharge Improve reconcilement clerk strength to 70% of UUE necessary for ability to reconcilement clerk and lift objects during IADL tasks such [...] documented as of this encounter Care Teams Assembler Filters Relationship Specialty Start Date End Date Genet Gusman APRN [address] [place] [id number] PCP - General 05/08/23 Georgiana Palomares, RN [facility] Registered Nurse Bariatrics 01/31/24 documented as of this encounter
--- OUTSIDE RECORDS SUMMARY | 2024-11-23 13:42 | XMS_ITS | Clinical Summary ---
Author Organization [facility] Address [address] [place] [address] Care Team Providers Care Packaging Specialist Name Role Phone Genet Gusman APRN Primary Care Provider [phone] Georgiana Palomares RN Unavailable Unavailable Allergies Active Allergy Reactions Criticality Noted Date Comments Wound Dressing Adhesive Dermatitis Low 02/26/2024 Medications Multiple Vitamins-Minera ls (Bariatric Multivitamins) capsule Take by mouth. Active cetirizine (ZyrTEC) 10 MG tablet Take 1 tablet (10 mg) by mouth 1 (one) time each day. Active fluticasone (Flonase) 50 MCG/ACT nasal spray INSTILL 1 SPRAY INTO EACH NOSTRIL ONCE DAILY Active OneTouch Ultra Test test strip use to test twice daily. 05/21/2024 Active Lancets (OneTouch Delica Plus [id number]) misc USE DIRECTED 2 TIMES DAILY 05/21/2024 Active ibuprofen 800 MG tablet 03/25/2024 Active Semaglutide,0.2 5 or 0.5MG/DOS, (Ozempic, 0.25 or 0.5 MG/DOSE,) 2 MG/3ML solution pen-injector Active Active Problems Problem Noted Date Diagnosed Date Obesity (BMI 30.0-34.9) 09/08/2024 Gastroesophageal reflux disease 09/08/2024 Right upper quadrant pain 09/08/2024 Constipation 09/08/2024 H/O gastric sleeve 03/17/2024 Overview (03/17/2024): 02/14/2024 Carpal tunnel syndrome, left 02/11/2024 Dyspepsia 07/25/2023 Shortness of breath on exertion 06/28/2023 Type 2 diabetes mellitus without complications 0 05/08/2023 Hyperlipidemia, unspecified 06/18/2022 Resolved Problems Problem Noted Date Diagnosed Date Resolved Date Morbid obesity with BMI of 40.0-44.9, adult 02/14/2024 05/19/2024 BMI 40.0-44.9, adult 11/29/2023 025 Obesity, Class II, BMI 35-39.9 06/28/2023 09/08/2024 Essential (primary) hypertension 06/28/2022 05/19/2024 Encounters Date Type Department Care Team Description 11/23/2024 8:40 AM EDT Office Visit [facility] [address] [place] [address] Jatinder Rodriguez MD Arrived 11/23/2024 Travel 11/20/2024 1:30 PM EDT Office Visit [facility] [address] [place] [address] Georgiana Hutchinson Carpal tunnel syndrome, left (Primary Dx) 11/20/2024 Travel 11/20/2024 Plan of Care Documentation [facility] [address] [place] [address] 11/18/2024 7:20 AM EDT - 11/18/2024 11:59 PM EDT Hospital Encounter [facility] [address] [place] [address] Wrist pain, left Discharge Disposition: Home or Self Care 11/18/2024 Travel 11/16/2024 Travel 11/13/2024 1:30 PM EDT Office Visit [facility] [address] [place] [address] Georgiana Hutchinson Carpal tunnel syndrome, left (Primary Dx) 11/13/2024 Travel 11/12/2024 Travel 11/03/2024 1:30 PM EDT Office Visit [facility] [address] [place] [address] Georgiana Hutchinson Carpal tunnel syndrome, left (Primary Dx) 11/03/2024 Travel 10/30/2024 Telephone [facility] [address] [place] [address] Jatinder Rodriguez MD 10/29/2024 1:30 PM EDT Office Visit [facility] [address] [place] [address] Georgiana Hutchinson Carpal tunnel syndrome, left (Primary Dx) 10/29/2024 Travel 10/16/2024 1:30 PM EDT Office Visit [facility] [address] [place] [address] Jasper Isabell Carpal tunnel syndrome, left (Primary Dx) 10/16/2024 Travel 10/16/2024 Plan of Care Documentation [facility] [address] [place] [address] 10/13/2024 Travel 10/06/2024 12:45 PM EDT Office Visit [facility] [address] [place] [address] Georgiana Hutchinson Carpal tunnel syndrome, left (Primary Dx) 10/06/2024 Plan of Care Documentation [facility] [address] [place] [address] 10/06/2024 Travel 10/06/2024 Orders Only [facility] [address] [place] [address] [address] Jatinder Rodriguez MD Carpal tunnel syndrome, left (Primary Dx) 09/30/2024 Travel 09/14/2024 Travel 09/09/2024 Results Follow-Up [facility] [address] [place] [address] Shawanda Montez, IT ADMIN 09/08/2024 8:00 AM EDT Office Visit [facility] [address] [place] [address] Eduardo Ho MD Obesity (BMI 30.0-34.9) (Primary Dx); Constipation, unspecified constipation type; Right upper quadrant pain; Gastroesophageal reflux disease, unspecified whether esophagitis present; S/P laparoscopic sleeve gastrectomy 09/08/2024 Travel 09/05/2024 Travel from Last 3 Months Family History Medical History Relation Name Comments Cancer Father Viet Diabetes Father Viet Heart attack Father Viet Heart disease Father Viet Stroke Father Viet Cancer Maternal Grandfather Porter Cancer Mother Akilah Cancer Paternal Grandmother [place] Anesthesia problems Neg Hx Malig Hyperthermia Neg Hx Relation Name Status Comments Father Viet Maternal Grandfather Porter Mother Akilah Alive Paternal Grandfather Workman Alive Paternal Grandmother [place] Social History Tobacco Use Types Packs/Day Years Used Date Smoking Tobacco: Former Cigarettes Q uit: 2010 Smokeless Tobacco: Never Tobacco Cessation:Counseling Given: Yes Alcohol Use Standard Drinks/Week Comments Never 0 [...] on file Sexual Orientation Not on file Last Filed Vital Signs Vital Sign Reading Time Taken Comments Blood Pressure 128/81 11/23/2024 8:31 AM EDT Pulse 66 11/23/2024 8:31 AM EDT Temperature 36.4 C (97.5 F) 11/23/2024 8:31 AM EDT Respiratory Rate 16 09/08/2024 8:35 AM EDT Oxygen Saturation 100% 11/23/2024 8:31 AM EDT Inhaled Oxygen Concentration - - Weight 85.7 kg (189 lb) 11/23/2024 8:31 AM EDT Height 166.4 cm (5' 5.5 ) 09/08/2024 8:35 AM EDT Body Mass Index 30.97 09/08/2024 8:35 AM EDT Plan of Treatment Upcoming Encounters Date Type Department Care Team (Late st Contact Info) Description 11/27/2024 1:30 PM EDT Office Visit [facility] [place] [address] [place] [address] HutchinsonGeorgiana E 12/01/2024 11:00 AM EDT Office Visit [facility] [address] [place] [address] Fredy Bridges MD [address] [address] 02/16/2025 8:00 AM EDT Office Visit [facility] [address] [place] [address] Eduardo Ho MD [address] [address] Health Maintenance Due Date Last Done Comments [facility]-HIV Screening 1988 [facility]-Hepatitis C Screening 1988 [facility]-/Child/Adol SDOH Screenings 1988 Diabetes: Dental Exam 1998 [facility]-Varicella Vaccines (1 of 2 - 13+ 2-dose series) 2001 HPV Vaccines (1 - 3-dose series) 09/27/2003 [facility]- SDOH Screenings 2006 [facility]-Adult SDOH Screenings 2006 [facility]-DTaP,Tdap,and Td Vaccines (1 - Tdap) 09/27/2007 [facility]-Hepatitis B Vaccines (1 of 3 - 19+ 3-dose series) 09/27/2007 [facility]-Pneumococcal Vaccine: Pediatrics (0 to 5 Years) and At-Risk Patients (6 to 49 Years) (1 of 2 - PCV) 09/27/2007 [facility]-Pap Smear 2009 [facility]-Cervical Cancer Screening 2018 [facility]-HPV/Cotest 2018 [facility]-Diabetes: Hemoglobin A1C 12/02/2023 06/04/2023 [id number] Vaccine ( - season) 2024 [facility]-Influenza Vaccine (#1) 2025 [facility]-Depression Screening 09/08/2025 09/08/2024, 0510/2024 [facility]-Zoster Vaccines (1 of 2) 2038 [facility]-Obesity Intervention Completed 025, 11/20/2024, 11/13/2024, Additional history exists [facility]-HIB Vaccines Aged Out No longer e ligible based on patient's age to complete this topic [facility]-Hepatitis A Vaccines Aged Out No longer eligible based on patient's age to complete this topic [facility]-IPV Vaccines Aged Out No longer e ligible based on patient's age to complete this topic [facility]-Rotavirus Vaccines Aged Out No lo nger eligible based on patient's age to complete this topic Goals Goal Patient Goal Type Associated Problems Recent Progress Patient-Stated? Author STG: to be met in 2-3 visits. Occupational Therapy On track(2024 2:47 PM EDT) No Georgiana Hutchinson Note: Demonstrate full fist without pain, necessary to electrode turner and finisher objects during ADLs, such clothing to button and open fasteners LTG: to be met in 4-6 visits Occupational Therapy On track(2024 2:47 PM EDT) No Georgiana Hutchinson Note: Pt will imrpove QDASH score to <20% in order to quantify patient percieved improvement in function by discharge Improve electrode turner and finisher strength to 70% of UUE necessary for ability to electrode turner and finisher and lift objects during IADL tasks such as broom,scrub brushes Demonstrate ability to weight bear on hand without pain to improve ability to push up when transferring from sit to stand at EOB or from chair. Procedures Procedure Name Priority Date/Time Associated Diagnosis Comments MR WRIST LEFT WO IV CONTRAST Routine 11/18/2024 8:36 AM EDT Wrist pain, left PREALBUMIN, PLASMA Routine 09/08/2024 9: 32 AM EDT BMI 40.0-44.9, adult (CMS/HCC) VITAMIN B12, SERUM Routine 09/08/2024 9: 32 AM EDT Obesity (BMI 30.0-34.9) Constipation, unspecified constipation type PTH INTACT TOTAL Routine 09/08/2024 9:32 AM EDT Obesity (BMI 30.0-34.9) Constipation, unspecified constipation type VITAMIN D 25 HYDROXY Routine 09/08/2024 9:32 AM EDT Obesity (BMI 30.0-34.9) Constipation, unspecified constipation type FERRITIN, SERUM Routine 09/08/2024 9:32 AM EDT Obesity (BMI 30.0-34.9) Constipation, unspecified constipation type IRON & TOTAL IRON BINDING CAPACITY, PLASMA (INCLUDES TRANSFERRIN) Routine 09/08/2024 9:32 AM EDT Obesity (BMI 30.0-34.9) Constipation, unspecified constipation type MAGNESIUM, PLASMA Routine 09/08/2024 9:3 2 AM EDT Obesity (BMI 30.0-34.9) Constipation, unspecified constipation type PHOSPHORUS, PLASMA Routine 09/08/2024 9: 32 AM EDT Obesity (BMI 30.0-34.9) Constipation, unspecified constipation type COMPREHENSIVE METABOLIC PANEL, PLASMA Routine 09/08/2024 9:32 AM EDT Obesity (BMI 30.0-34.9) Constipation, unspecified constipation type CBC WITH AUTO DIFFERENTIAL Routine 09/08/2024 9:32 AM EDT Obesity (BMI 30.0-34.9) Constipation, unspecified constipation type VITAMIN B1 (THIAMINE), WHOLE BLOOD (SO) Routine 09/08/2024 9:32 AM EDT Obesity (BMI 30.0-34.9) Constipation, unspecified constipation type HEMOGLOBIN A1C Routine 06/04/2023 12:23 PM EST Obesity (BMI 30-39.9) from Last 3 Months or Most Recently Relevant to Health Maintenance Results * MR Wrist Left wo IV [...] signing this report, I, the attending physician, attestthat I have personally reviewed the images/data for the aboveexamination(s) and agree with the final edited report. Drafted by Luis Roblero MD on 11/18/2024 8:49 AM Final report signed by Rafael Tabor MD on 11/18/2024 11:50 AM Jatinder Rodriguze MD IM MRI PROCEDURES Final Result * Iron & Total Iron Binding Capacity, Plasma (Includes Transferrin) (09/08/2024 9:32 AM EDT) Iron, Plasma 97 30 - 160 ug/dL 09/08/2024 1:20 PM EDT [facility] Transferrin, Plasma 271 200 - 360 mg/dL 09/08/2024 1:20 PM EDT [facility] Total Iron Binding Capacity, Plasma 339 240 - 450 ug/mL 09/08/2024 1:20 PM EDT [facility] Transferrin Saturation 29 14 - 50 % 09/08/2024 1:20 PM EDT [facility] Blood Venous blood specimen / Unknown Venipuncture / Unknown 09/08/2024 9:32 AM EDT 09/08/2024 9:32 AM EDT Eduardo Ho MD LAB BLOOD ORDERABLES Final Resul t Performing Organization Address City/[facility]/ZIP Co de Phone Number [facility] [address] [place] [address] * (ABNORMAL) Vitamin D 25 Hydroxy (09/08/2024 9:32 AM EDT) Vitamin D 25 Hydroxy 17.7(L) 20.0 - 80.0 ng/mL 09/08/2024 1:36 PM EDT [facility] Blood Venous blood specimen / Unknown Venipuncture / Unknown 09/08/2024 9:32 AM EDT 09/08/2024 9:32 AM EDT Narrative [facility] - 09/08/2024 1:36 PM EDT Testing performed on Cunningham Engine Monitor, standardized against NIST SRM 2972. When testing samples from patients whose predominant form of vitamin D is vitamin D2, such as patients receiving vitamin D2 supplementation, results that are subtherapeutic should be confirmed with another method, such as LC-MS/MS, before being used for patient management. Vitamin D, 25-Hydroxy reference range, age 18 years and up: Deficiency: <12 ng/mL Insufficiency: 12 to 19 ng/mL Sufficiency: 20 to 80 ng/mL Possible toxicity: >100 ng/mL us Eduardo Ho MD LAB BLOOD ORDERABLES Final Resul t Performing Organization Address City/[facility]/ZIP Co de Phone Number [facility] [address] [place] [address] * CBC and Differential (09/08/2024 9:32 AM EDT) WBC Count 8.83 3.70 - 10.30 10*3/uL LAB HEMATOLOGY METHOD 09/08/2024 1:02 PM EDT [facility] RBC Count 4.65 3.90 - 5.20 10*6/uL LAB HEMATOLOGY METHOD 09/08/2024 1:02 PM EDT [facility] HGB 13.2 11.2 - 15.7 g/dL LAB HEMATOLOGY METHOD 09/08/2024 1:02 PM EDT [facility] HCT 39.9 34.0 - 45.0 % LAB HEMATOLOGY METHOD 09/08/2024 1:02 PM EDT [facility] Platelet Count 355 155 - 369 10*3/uL LAB HEMATOLOGY METHOD 09/08/2024 1:02 PM EDT [facility] MCV 86 79 - 98 fL LAB HEMATOLOGY METHOD 09/08/2024 1:02 PM EDT [facility] MCH 28.4 26.0 - 32.0 pg LAB HEMATOLOGY METHOD 09/08/2024 1:02 PM EDT [facility] MCHC 33.1 30.7 - 35.5 g/dL LAB HEMATOLOGY METHOD 09/08/2024 1:02 PM EDT [facility] RDW 12.6 11.5 - 14.5 % LAB HEMATOLOGY METHOD 09/08/2024 1:02 PM EDT [facility] MPV 11.7 8.8 - 12.5 fL LAB HEMATOLOGY METHOD 09/08/2024 1:02 PM EDT [facility] nRBC 0.0 <=0.0 per 100 WBCs LAB HEMATOLOGY METHOD 09/08/2024 1:02 PM EDT [facility] Differential Type Automated LAB HEMATOLOGY METHOD 09/08/2024 1:02 PM EDT [facility] Neutrophils % 55 % LAB HEMATOLOGY METHOD 09/08/2024 1:02 PM EDT [facility] Lymphocytes % 33 % LAB HEMATOLOGY METHOD 09/08/2024 1:02 PM EDT [facility] Monocytes % 8 % LAB HEMATOLOGY METHOD 09/08/2024 1:02 PM EDT [facility] Eosinophils % 3 % LAB HEMATOLOGY METHOD 09/08/2024 1:02 PM EDT [facility] Basophils % 1 % LAB HEMATOLOGY METHOD 09/08/2024 1:02 PM EDT [facility] Immature Granulocytes % 0 % LAB HEMATOLOGY METHOD 09/08/2024 1:02 PM EDT [facility] Neutrophils Absolute 4.93 1.60 - 6.10 10*3/uL LAB HEMATOLOGY METHOD 09/08/2024 1:02 PM EDT [facility] Lymphocytes Absolute 2.91 1.20 - 3.90 10*3/uL LAB HEMATOLOGY METHOD 09/08/2024 1:02 PM EDT [facility] Monocytes Absolute 0.67 0.30 - 0.90 10*3/uL LAB HEMATOLOGY METHOD 09/08/2024 1:02 PM EDT [facility] Eosinophils Absolute 0.23 0.00 - 0.50 10*3/uL LAB HEMATOLOGY METHOD 09/08/2024 1:02 PM EDT [facility] Basophils Absolute 0.07 0.00 - 0.10 10*3/uL LAB HEMATOLOGY METHOD 09/08/2024 1:02 PM EDT [facility] Immature Granulocytes Absolute 0.02 0.00 - 0.06 10*3/uL LAB HEMATOLOGY METHOD 09/08/2024 1:02 PM EDT [facility] Blood Venous blood specimen / Unknown Venipuncture / Unknown 09/08/2024 9:32 AM EDT 09/08/2024 9:32 AM EDT Narrative [facility] - 09/08/2024 1:02 PM EDT Therapeutic decision making should be based on absolute values, rather than percentages. us Eduardo Ho MD LAB BLOOD ORDERABLES Final Resul t [facility] [address] [place] [address] * Vitamin B1 (Thiamine), Whole Blood (09/08/2024 9:32 AM EDT) Pathologist [facility] VITAMIN B1, WHOLE BLOOD 102 70 - 180 nmol/L 09/12/2024 10:50 AM EDT [facility] ([employer]) Blood Venous blood specimen / Unknown Venipuncture / Unknown 09/08/2024 9:32 AM EDT 09/08/2024 9:32 AM EDT Narrative [facility] - 09/12/2024 10:50 AM EDT INTERPRETIVE INFORMATION: Vitamin B1, Whole Blood This assay measures the concentration of thiamine diphosphate (TDP), the primary active form of vitamin B1. Approximately 90 percent of vitamin B1 present in whole blood is TDP. Thiamine and thiamine monophosphate, which comprise the remaining 10 percent, are not measured. This test was developed and its performance characteristics determined by [facility]. It has not been cleared or approved by the US Food and Drug Administration. This test was performed in a CLIA certified laboratory and is intended for clinical purposes. Performed By: [facility] [address] [place] [address] Regional Facilities Manager: Roscoe Muhammad MD, PhD CLIA Number: [id number] Eduardo Ho MD LAB BLOOD ORDERABLES Final Resul t Performing Organization Address City/[facility] Co de Phone Number [facility] [address] [place] [address] * (ABNORMAL) Prealbumin (09/08/2024 9:32 AM EDT) Prealbumin, Plasma 16.2(L) 20.0 - 41.0 mg/dL 09/08/2024 1:20 PM EDT [facility] Blood Venous blood specimen / Unknown Venipuncture / Unknown 09/08/2024 9:32 AM EDT 09/08/2024 9:32 AM EDT Shawanda Montez APRN LAB BLOOD ORDERABLES Josiane l Result Performing Organization Address [facility] Co de Phone Number [facility] [address] [place] [address] * Phosphorus, Plasma (09/08/2024 9:32 AM EDT) Phosphorus, Plasma 3.4 2.5 - 4.5 mg/dL 09/08/2024 1:20 PM EDT [facility] Blood Venous blood specimen / Unknown Venipuncture / Unknown 09/08/2024 9:32 AM EDT 09/08/2024 9:32 AM EDT Eduardo Ho MD LAB BLOOD ORDERABLES Final Resul t Performing Organization Address City/[facility]/ZIP Co de Phone Number [facility] [address] [place] [address] * PTH Intact Total (09/08/2024 9:32 AM EDT) PTH Intact Total 36 9 - 77 pg/mL 09/08/2024 1:53 PM EDT [facility] Blood Venous blood specimen / Unknown Venipuncture / Unknown 09/08/2024 9:32 AM EDT 09/08/2024 9:32 AM EDT Narrative [facility] - 09/08/2024 1:53 PM EDT Assay performed by immunoassay at the [facility]. Performed on [employer] Engine Monitor chemiluminescent immunoassay, tractable to the World Health Organization's first international standard for PTH from the [facility], Code 79/500. Results obtained from different test methods or kits cannot be used interchangeably. us Eduardo Ho MD LAB BLOOD ORDERABLES Final Resul t Performing Organization Address City/[facility]/ZIP Co de Phone Number [facility] [address] [place] [address] * (ABNORMAL) Magnesium, Plasma (09/08/2024 9:32 AM EDT) Pathologist [facility] Magnesium, Plasma 1.8(L) 1.9 - 2.4 mg/dL 09/08/2024 1:20 PM EDT [facility] Blood Venous blood specimen / Unknown Venipuncture / Unknown 09/08/2024 9:32 AM EDT 09/08/2024 9:32 AM EDT Eduardo Ho MD LAB BLOOD ORDERABLES Final Resul t [facility] [address] [place] [address] * Ferritin, Serum (09/08/2024 9:32 AM EDT) Pathologist [facility] Ferritin, Serum 86 13 - 150 ng/mL 09/08/2024 1:32 PM EDT [facility] Blood Venous blood specimen / Unknown Venipuncture / Unknown 09/08/2024 9:32 AM EDT 09/08/2024 9:32 AM EDT us Eduardo Ho MD LAB BLOOD ORDERABLES Final Resul t [facility] [address] [place] [address] * Vitamin B12, Serum (09/08/2024 9:32 AM EDT) Vitamin B12, Serum 430 210 - 1,033 pg/mL 09/08/2024 1:32 PM EDT [facility] Blood Venous blood specimen / Unknown Venipuncture / Unknown 09/08/2024 9:32 AM EDT 09/08/2024 9:32 AM EDT us Eduardo Ho MD LAB BLOOD ORDERABLES Final Resul t Performing Organization Address [facility] Co de Phone Number [facility] [address] [place] [address] * (ABNORMAL) Comprehensive Metabolic Panel, Plasma (09/08/2024 9:32 AM EDT) Glucose, Plasma 104(H) 74 - 99 mg/dL 09/08/2024 1:20 PM EDT [facility] BUN, Plasma 9 7 - 21 mg/dL 09/08/2024 1:20 PM EDT [facility] Creatinine, Plasma 0.64 0.60 - 1.10 mg/dL 09/08/2024 1:20 PM EDT [facility] BUN/Creatinine Ratio 14 09/08/2024 1:20 PM EDT [facility] Sodium, Plasma 144 136 - 145 mmol/L 09/08/2024 1:20 PM EDT [facility] Potassium, Plasma 4.1 3.6 - 4.9 mmol/L 09/08/2024 1:20 PM EDT [facility] Chloride, Plasma 108(H) 97 - 107 mmol/L 09/08/2024 1:20 PM EDT [facility] CO2, Plasma 25 22 - 29 mmol/L 09/08/2024 1:20 PM EDT [facility] Anion Gap 11 6 - 16 mmol/L 09/08/2024 1:20 PM EDT [facility] Total Calcium, Plasma 9.5 8.9 - 10.2 mg/dL 09/08/2024 1:20 PM EDT [facility] Total Protein 7.2 6.3 - 7.9 g/dL 09/08/2024 1:20 PM EDT [facility] Albumin, Plasma 4.3 3.5 - 5.2 g/dL 09/08/2024 1:20 PM EDT [facility] AST, Plasma 15 10 - 35 U/L 09/08/2024 1:20 PM EDT [facility] ALT, Plasma 15 10 - 35 U/L 09/08/2024 1:20 PM EDT [facility] Alkaline Phosphatase, Plasma 65 35 - 104 U/L 09/08/2024 1:20 PM EDT [facility] Total Bilirubin, Plasma 0.6 0.2 - 1.1 mg/dL 09/08/2024 1:20 PM EDT [facility] eGFRcr 118.4 mL/min/1.7 3m*2 09/08/2024 1:20 PM EDT [facility] Comment:Reported eGFRcr in m L/min/1.73m2 is based the CKD-EPI 2020 equation that does not use a race coefficient. Blood Venous blood specimen / Unknown Venipuncture / Unknown 09/08/2024 9:32 AM EDT 09/08/2024 9:32 AM EDT us Eduardo Ho MD LAB BLOOD ORDERABLES Final Resul t [facility] [address] [place] [address] * (ABNORMAL) Hemoglobin A1c (06/04/2023 12:23 PM EST) Hemoglobin A1c 6.4(H) <5.7 % 06/04/2023 3:11 PM EST [facility] Blood Venous blood specimen / Unknown Venipuncture / Unknown 06/04/2023 12:23 PM EST 06/04/2023 12:23 PM EST Narrative [facility] - 06/04/2023 3:11 PM EST HA1C Interpretive Data: Diagnosis of Diabetes: Diabetic > or = 6.5% Pre-diabetic 5.7 to 6.4% Non-diabetic < or = 5.6% Glycemic Targets for Type I and Type II Diabetics: Non- Adults <7.0% Adults <6.0% Children and Adolescents <7.5% Source: [employer]. Standards of medical care in diabetes,2017. Diabetes Care.2017:40 (suppl 1):S1-S135. HbA1c assay performed by an ion-exchange chromatography method that is certified traceable to the DCCT. us Eduardo Ho MD LAB BLOOD ORDERABLES Final Resul t [facility] [address] [place] [address] from Last 3 Months or Most Recently Relevant to Health Maintenance Insurance [employer] Advance Directives * Full Code (Latest Code Status on File) Date Activated Date Inactivated Comments 02/14/2024 11:33 AM 02/16/2024 4:46 PM Question Answer Comments Patient has decision-making capacity? Yes Care Teams Packaging Specialist Relationship Specialty Start Date End Date Genet Gusman APRN [address] [place], [place] [id number] PCP - General 05/08/23 Georgiana Palomares RN [facility] Registered Nurse Bariatrics 01/31/24
--- OUTSIDE RECORDS SUMMARY | 2024-11-23 13:42 | XMS_ITS | Encounter Summary ---
Author Organization Healthcare Address [address] [place] [address] Care Team Providers Care Emergency Medical Technician Name Role Phone UzmaGenet hood Dorcas DAVE Primary Care Provider [phone] Georgiana Palomares RN Unavailable Unavailable Encounter Details Date Type Department Care Team (Late st Contact Info) Description 11/20/2024 Plan of Care Documentation [facility] [address] [place] [address] Social History Tobacco Use Types Packs/Day Years [...] [facility] [address] [place] [address] Georgiana Hutchinson 12/01/2024 11:00 AM EDT Office Visit [facility] [address] [place] [address] Fredy Bridges MD [address] [phone] 02/16/2025 8:00 AM EDT Office Visit [facility] [address] [place] [address] Eduardo Ho MD [address] 2[address] [place] [address] documented as of this encounter Goals Goal Patient Goal Type Associated Problems Recent Progress Patient-Stated? Author STG: to be met in 2-3 visits. Occupational Therapy On track(2024 2:47 PM EDT) No Georgiana Hutchinson Note: Demonstrate full fist without pain, necessary to aviation engineer objects during ADLs, such clothing to button and open fasteners LTG: to be met in 4-6 visits Occupational Therapy On track(2024 2:47 PM EDT) No Georgiana Hutchinson Note: Pt will imrpove QDASH score to <20% in order to quantify patient percieved improvement in function by discharge Improve aviation engineer strength to 70% of UUE necessary for ability to aviation engineer and lift objects during IADL tasks such [...] documented as of this encounter Care Teams Emergency Medical Technician Relationship Specialty Start Date End Date Genet Gusman APRN [address] [place] [address] PCP - General 05/08/23 Georgiana Palomares, RN [facility] Registered Nurse Bariatrics 01/31/24 documented as of this encounter
--- OUTSIDE RECORDS SUMMARY | 2024-11-23 13:42 | XMS_ITS | Encounter Summary ---
Author Organization Healthcare Address [address] [place] [address] Care Team Providers Care Color Worker Name Role Phone UzmaGenet hood Dorcas DAVE Primary Care Provider [phone] Georgiana Palomares RN Unavailable Unavailable Encounter Details Date Type Department Care Team (Late st Contact Info) Description 10/06/2024 Plan of Care Documentation [facility] [address] [place] [address] Social History Tobacco Use Types [...] [facility] [address] [place] [address] Georgiana Hutchinson 12/01/2024 11:00 AM EDT Office Visit [facility] [address] [place] [address] Fredy Bridges MD [address] [address] 02/16/2025 8:00 AM EDT Office Visit [facility] [address] [place] [address] Eduardo Ho MD [address] [place] [address] documented as of this encounter Goals Goal Patient Goal Type Associated Problems Recent Progress Patient-Stated? Author STG: to be met in 2-3 visits. Occupational Therapy On track(2024 2:47 PM EDT) No Georgiana Hutchinson Note: Demonstrate full fist without pain, necessary to air operations manager objects during ADLs, such clothing to button and open fasteners LTG: to be met in 4-6 visits Occupational Therapy On track(2024 2:47 PM EDT) No eGorgiana Hutchinson Note: Pt will imrpove QDASH score to <20% in order to quantify patient percieved improvement in function by discharge Improve air operations manager strength to 70% of UUE necessary for ability to air operations manager and lift objects during IADL tasks such [...] documented as of this encounter Care Teams Color Worker Relationship Specialty Start Date End Date Genet Gusman APRN [address] [place] [address] PCP - General 05/08/23 Georgiana Palomares, RN [facility] Registered Nurse Bariatrics 01/31/24 documented as of this encounter
--- OUTSIDE RECORDS SUMMARY | 2024-11-23 13:42 | XMS_ITS | Encounter Summary ---
Author Organization Healthcare Address [address] [place] [address] Care Team Providers Care Section Weaver Name Role Phone UzmaGenet hood Dorcas DAVE Primary Care Provider Georgiana Palomares RN Unavailable Unavailable Encounter Details Date Type Department Care Team (Latest Contact Info) Description 11/12/2024 Travel Social History Tobacco Use Types Packs/Day [...] [facility] [address] [place] [address] Georgiana Hutchinson 12/01/2024 11:00 AM EDT Office Visit [facility] [address] [place] [address] Fredy Bridges MD [address] [address] 02/16/2025 8:00 AM EDT Office Visit [facility] General & Weight Loss Surgery [address] [place] [address] Eduardo Ho MD [address] [address] documented as of this encounter Goals Goal Patient Goal Type Associated Problems Recent Progress Patient-Stated? Author STG: to be met in 2-3 visits. Occupational Therapy On track(2024 2:47 PM EDT) No Georgiana Hutchinson Note: Demonstrate full fist without pain, necessary to dye line operator objects during ADLs, such clothing to button and open fasteners LTG: to be met in 4-6 visits Occupational Therapy On track(2024 2:47 PM EDT) No Georgiana Hutchinson Note: Pt will imrpove QDASH score to <20% in order to quantify patient percieved improvement in function by discharge Improve dye line operator strength to 70% of UUE necessary for ability to dye line operator and lift objects during IADL tasks such [...] documented as of this encounter Care Teams Section Weaver Relationship Specialty Start Date End Date Genet Gusman APRN [address] [place] [address] PCP - General 05/08/23 Georgiana Palomares, RN [facility] Registered Nurse Bariatrics 01/31/24 documented as of this encounter
--- OUTSIDE RECORDS SUMMARY | 2024-11-23 13:42 | XMS_ITS | Encounter Summary ---
Author Organization Healthcare Address [address] [place] [address] Care Team Providers Care Director Instructional Material Name Role Phone UzmaGenet hood Dorcas DAVE Primary Care Provider Georgiana Palomares RN Unavailable Unavailable Encounter Details Date Type Department Care Team (Latest Contact Info) Description 11/20/2024 Travel Social History Tobacco Use Types Packs/Day [...] [facility] [address] [place] [address] Georgiana Hutchinson 12/01/2024 11:00 AM EDT Office Visit [facility] [address] [place] [address] Fredy Bridges MD [address] [address] 02/16/2025 8:00 AM EDT Office Visit [facility] [address] [place] [address] Eduardo Ho MD [address] [address] documented as of this encounter Goals Goal Patient Goal Type Associated Problems Recent Progress Patient-Stated? Author STG: to be met in 2-3 visits. Occupational Therapy On track(2024 2:47 PM EDT) No Georgiana Hutchinson Note: Demonstrate full fist without pain, necessary to college sports coach objects during ADLs, such clothing to button and open fasteners LTG: to be met in 4-6 visits Occupational Therapy On track(2024 2:47 PM EDT) No Georgiana Hutchinson Note: Pt will imrpove QDASH score to <20% in order to quantify patient percieved improvement in function by discharge Improve college sports coach strength to 70% of UUE necessary for ability to college sports coach and lift objects during IADL tasks such [...] documented as of this encounter Care Teams Director Instructional Material Relationship Specialty Start Date End Date Genet Gusman APRN [address] [place] [address] PCP - General 05/08/23 Georgiana Palomares, RN [facility] Registered Nurse Bariatrics 01/31/24 documented as of this encounter
--- OUTSIDE RECORDS SUMMARY | 2024-11-23 13:42 | XMS_ITS | Encounter Summary ---
Author Organization Healthcare Address [address] [place] [address] Care Team Providers Care Casting Repairer Name Role Phone UzmaGenet hood Dorcas DAVE Primary Care Provider Georgiana Palomares RN Unavailable Unavailable Encounter Details Date Type Department Care Team (Latest Contact Info) Description 11/18/2024 Travel Social History Tobacco Use Types Packs/Day [...] [facility] [address] [place] [address] Georgiana Hutchinson 12/01/2024 11:00 AM EDT Office Visit [facility] [address] [place] [address] Fredy Bridges MD [address] [address] 02/16/2025 8:00 AM EDT Office Visit [facility] Weight [facility] Surgery [address] [place] [address] Eduardo Ho MD [address] [address] documented as of this encounter Goals Goal Patient Goal Type Associated Problems Recent Progress Patient-Stated? Author STG: to be met in 2-3 visits. Occupational Therapy On track(2024 2:47 PM EDT) No Georgiana Hutchinson Note: Demonstrate full fist without pain, necessary to media arts professor objects during ADLs, such clothing to button and open fasteners LTG: to be met in 4-6 visits Occupational Therapy On track(2024 2:47 PM EDT) No Georgiana Hutchinson Note: Pt will imrpove QDASH score to <20% in order to quantify patient percieved improvement in function by discharge Improve media arts professor strength to 70% of UUE necessary for ability to media arts professor and lift objects during IADL tasks such [...] documented as of this encounter Care Teams Casting Repairer Relationship Specialty Start Date End Date Genet Gusman APRN [address] [place] [address] PCP - General 05/08/23 Georgiana Palomares, RN [facility] Registered Nurse Bariatrics 01/31/24 documented as of this encounter
--- OUTSIDE RECORDS SUMMARY | 2024-11-23 13:42 | XMS_ITS | Encounter Summary ---
Author Organization Healthcare Address [address] [place] [address] Care Team Providers Care Varnish Filterer Name Role Phone UzmaGenet hood Dorcas DAVE Primary Care Provider Georgiana Palomares RN Unavailable Unavailable Encounter Details Date Type Department Care Team (Latest Contact Info) Description 11/13/2024 Travel Social History Tobacco Use Types Packs/Day [...] [facility] [address] [place] [address] Georgiana Hutchinson 12/01/2024 11:00 AM EDT Office Visit [facility] [address] [place] [address] Fredy Bridges MD [address] [address] 02/16/2025 8:00 AM EDT Office Visit [facility] General & Weight Loss Surgery [address] [place] [address] Eduardo Ho MD [address] [address] documented as of this encounter Goals Goal Patient Goal Type Associated Problems Recent Progress Patient-Stated? Author STG: to be met in 2-3 visits. Occupational Therapy On track(2024 2:47 PM EDT) No Georgiana Hutchinson Note: Demonstrate full fist without pain, necessary to anesthesiology tech objects during ADLs, such clothing to button and open fasteners LTG: to be met in 4-6 visits Occupational Therapy On track(2024 2:47 PM EDT) No Georgiana Hutchinson Note: Pt will imrpove QDASH score to <20% in order to quantify patient percieved improvement in function by discharge Improve anesthesiology tech strength to 70% of UUE necessary for ability to anesthesiology tech and lift objects during IADL tasks such [...] documented as of this encounter Care Teams Varnish Filterer Relationship Specialty Start Date End Date Genet Gusman APRN [address] [place] [address] PCP - General 05/08/23 Georgiana Palomares, RN [facility] Registered Nurse Bariatrics 01/31/24 documented as of this encounter
--- OUTSIDE RECORDS SUMMARY | 2024-11-23 13:42 | XMS_ITS | Encounter Summary ---
Author Organization Healthcare Address [address] [place] [address] Care Team Providers Care Salt Machine Operator Name Role Phone UzmaGenet hood Dorcas DAVE Primary Care Provider Georgiana Palomares RN Unavailable Unavailable Encounter Details Date Type Department Care Team (Latest Contact Info) Description 10/16/2024 Travel Social History Tobacco Use Types Packs/Day [...] [facility] [address] [place] [address] Georgiana Hutchinson 12/01/2024 11:00 AM EDT Office Visit [facility] [address] [place] [address] Fredy Bridges MD [address] [address] 02/16/2025 8:00 AM EDT Office Visit [facility] General & Weight Loss Surgery [address] [place] [address] Eduardo Ho MD [address] [address] documented as of this encounter Goals Goal Patient Goal Type Associated Problems Recent Progress Patient-Stated? Author STG: to be met in 2-3 visits. Occupational Therapy On track(2024 2:47 PM EDT) No Georgiana Hutchinson Note: Demonstrate full fist without pain, necessary to well shooter objects during ADLs, such clothing to button and open fasteners LTG: to be met in 4-6 visits Occupational Therapy On track(2024 2:47 PM EDT) No Georgiana Hutchinson Note: Pt will imrpove QDASH score to <20% in order to quantify patient percieved improvement in function by discharge Improve well shooter strength to 70% of UUE necessary for ability to well shooter and lift objects during IADL tasks such [...] documented as of this encounter Care Teams Salt Machine Operator Relationship Specialty Start Date End Date Genet Gusman APRN [address] [place] [address] PCP - General 05/08/23 Georgiana Palomares, RN [facility] Registered Nurse Bariatrics 01/31/24 documented as of this encounter
--- OUTSIDE RECORDS SUMMARY | 2024-11-23 13:42 | XMS_ITS | Encounter Summary ---
Author Organization Healthcare Address [address] [place] [address] Care Team Providers Care Planning Engineer Name Role Phone UzmaGenet hood Dorcas DAVE Primary Care Provider Georgiana Palomares RN Unavailable Unavailable Encounter Details Date Type Department Care Team (Latest Contact Info) Description 11/16/2024 Travel Social History Tobacco Use Types Packs/Day [...] [facility] [address] [place] [address] Georgiana Hutchinson 12/01/2024 11:00 AM EDT Office Visit [facility] [address] [place] [address] Fredy Bridges MD [address] [address] 02/16/2025 8:00 AM EDT Office Visit [facility] & Weight Loss Surgery [address] [place] [address] Eduardo Ho MD [address] [address] documented as of this encounter Goals Goal Patient Goal Type Associated Problems Recent Progress Patient-Stated? Author STG: to be met in 2-3 visits. Occupational Therapy On track(2024 2:47 PM EDT) No Georgiana Hutchinson Note: Demonstrate full fist without pain, necessary to program director scouting objects during ADLs, such clothing to button and open fasteners LTG: to be met in 4-6 visits Occupational Therapy On track(2024 2:47 PM EDT) No Georgiana Hutchinson Note: Pt will imrpove QDASH score to <20% in order to quantify patient percieved improvement in function by discharge Improve program director scouting strength to 70% of UUE necessary for ability to program director scouting and lift objects during IADL tasks such [...] documented as of this encounter Care Teams Planning Engineer Relationship Specialty Start Date End Date Genet Gusman APRN [address] [place] [address] PCP - General 05/08/23 Georgiana Palomares, RN [facility] Registered Nurse Bariatrics 01/31/24 documented as of this encounter
--- OUTSIDE RECORDS SUMMARY | 2024-11-23 13:42 | XMS_ITS | Encounter Summary ---
Author Organization Healthcare Address [address] [place] [address] Care Team Providers Care Truck Railroad And Bus Motor Mechanic Name Role Phone Genet Gusman TENZIN Primary Care Provider [phone] Georgiana Palomares RN Unavailable Unavailable Encounter Details Date Type Department Care Team (Late st Contact Info) Description 10/30/2024 Telephone [facility] [address] [place] [address] Jatinder Rodriguez MD [address] [address] Social History Tobacco Use Types Packs/Day Years [...] EDT Office Visit [facility] [address] [place] [address] Georgiana Hutchinson 12/01/2024 11:00 AM EDT Office Visit [facility] [address] [place] [address] Fredy Bridges MD [address] [address] 02/16/2025 8:00 AM EDT [facility] [address] [place] [address] Eduardo Ho MD [address] [address] documented as of this encounter Goals Goal Patient Goal Type Associated Problems Recent Progress Patient-Stated? Author STG: to be met in 2-3 visits. Occupational Therapy On track(2024 2:47 PM EDT) No Georgiana Hutchinson Note: Demonstrate full fist without pain, necessary to sleeve setter lockstitch objects during ADLs, such clothing to button and open fasteners LTG: to be met in 4-6 visits Occupational Therapy On track(2024 2:47 PM EDT) No Georgiana Hutchinson Note: Pt will imrpove QDASH score to <20% in order to quantify patient percieved improvement in function by discharge Improve sleeve setter lockstitch strength to 70% of UUE necessary for ability to sleeve setter lockstitch and lift objects during IADL tasks such [...] documented as of this encounter Care Teams Truck Railroad And Bus Motor Mechanic Relationship Specialty Start Date End Date Genet Gusman APRN [address] [place] [address] PCP - General 05/08/23 Georgiana Palomares RN [facility] Registered Nurse Bariatrics 01/31/24 documented as of this encounter
--- OUTSIDE RECORDS SUMMARY | 2024-11-23 13:42 | XMS_ITS | Encounter Summary ---
Author Organization Healthcare Address [address] [place] [address] Care Team Providers Care Chief Controller Tower Name Role Phone UzmaGenet hood Dorcas DAVE Primary Care Provider Georgiana Palomares RN Unavailable Unavailable Encounter Details Date Type Department Care Team (Latest Contact Info) Description 10/13/2024 Travel Social History Tobacco Use Types Packs/Day [...] [facility] [address] [place] [address] Georgiana Hutchinson 12/01/2024 11:00 AM EDT Office Visit [facility] [address] [place] [address] Fredy Bridges MD [address] [address] 02/16/2025 8:00 AM EDT Office Visit [facility] General & Weight Loss Surgery [address] [place] [address] Eduardo Ho MD [address] [address] documented as of this encounter Goals Goal Patient Goal Type Associated Problems Recent Progress Patient-Stated? Author STG: to be met in 2-3 visits. Occupational Therapy On track(2024 2:47 PM EDT) No Georgiana Hutchinson Note: Demonstrate full fist without pain, necessary to incinerator operator objects during ADLs, such clothing to button and open fasteners LTG: to be met in 4-6 visits Occupational Therapy On track(2024 2:47 PM EDT) No Georgiana Hutchinson Note: Pt will imrpove QDASH score to <20% in order to quantify patient percieved improvement in function by discharge Improve incinerator operator strength to 70% of UUE necessary for ability to incinerator operator and lift objects during IADL tasks [...] documented as of this encounter Care Teams Chief Controller Tower Relationship Specialty Start Date End Date Genet Gusman APRN [address] [place] [address] PCP - General 05/08/23 Georgiana Palomares, RN [facility] Registered Nurse Bariatrics 01/31/24 documented as of this encounter
--- OUTSIDE RECORDS SUMMARY | 2024-11-23 13:42 | XMS_ITS | Encounter Summary ---
Author Organization Healthcare Address [address] [place] [address] Care Team Providers Care Company Truck Driver Name Role Phone UzmaGenet hood Dorcas DAVE Primary Care Provider Georgiana Palomares RN Unavailable Unavailable Encounter Details Date Type Department Care Team (Latest Contact Info) Description 10/29/2024 Travel Social History Tobacco Use Types Packs/Day [...] [facility] [address] [place] [address] Georgiana Hutchinson 12/01/2024 11:00 AM EDT Office Visit [facility] [address] [place] [address] Fredy Bridges MD [address] [address] 02/16/2025 8:00 AM EDT Office Visit [facility] General & Weight Loss Surgery [address] [place] [address] Eduardo Ho MD [address] [address] documented as of this encounter Goals Goal Patient Goal Type Associated Problems Recent Progress Patient-Stated? Author STG: to be met in 2-3 visits. Occupational Therapy On track(2024 2:47 PM EDT) No Georgiana Hutchinson Note: Demonstrate full fist without pain, necessary to head of store operations objects during ADLs, such clothing to button and open fasteners LTG: to be met in 4-6 visits Occupational Therapy On track(2024 2:47 PM EDT) No Georgiana Hutchinson Note: Pt will imrpove QDASH score to <20% in order to quantify patient percieved improvement in function by discharge Improve head of store operations strength to 70% of UUE necessary for ability to head of store operations and lift objects during IADL tasks such [...] documented as of this encounter Care Teams Company Truck Driver Relationship Specialty Start Date End Date Genet Gusman APRN [address] [place] [address] PCP - General 05/08/23 Georgiana Palomares, RN [facility] Registered Nurse Bariatrics 01/31/24 documented as of this encounter
--- OUTSIDE RECORDS SUMMARY | 2024-11-23 13:42 | XMS_ITS | Encounter Summary ---
Author Organization Healthcare Address [address] [place] [address] Care Team Providers Care Marketing Account Executive Name Role Phone UzmaGenet hood Dorcas DAVE Primary Care Provider [phone] Georgiana Palomares RN Unavailable Unavailable Encounter Details Date Type Department Care Team (Late st Contact Info) Description 10/16/2024 Plan of Care Documentation [facility] [address] [place] [address] Social History Tobacco Use Types [...] [facility] [address] [place] [address] Georgiana Hutchinson 12/01/2024 11:00 AM EDT Office Visit [facility] [address] [place] [address] Fredy Bridges MD [address] [phone] 02/16/2025 8:00 AM EDT Office Visit [facility] [address] [place] [address] Eduardo Ho MD [address] [place] [address] documented as of this encounter Goals Goal Patient Goal Type Associated Problems Recent Progress Patient-Stated? Author STG: to be met in 2-3 visits. Occupational Therapy On track(2024 2:47 PM EDT) No Georgiana Hutchinson Note: Demonstrate full fist without pain, necessary to vascular manager objects during ADLs, such clothing to button and open fasteners LTG: to be met in 4-6 visits Occupational Therapy On track(2024 2:47 PM EDT) No Georgiana Hutchinson Note: Pt will imrpove QDASH score to <20% in order to quantify patient percieved improvement in function by discharge Improve vascular manager strength to 70% of UUE necessary for ability to vascular manager and lift objects during IADL tasks [...] documented as of this encounter Care Teams Marketing Account Executive Relationship Specialty Start Date End Date Genet Gusman APRN [address] [place] [address] PCP - General 05/08/23 Georgiana Palomares, RN [facility] Registered Nurse Bariatrics 01/31/24 documented as of this encounter
--- OUTSIDE RECORDS SUMMARY | 2024-11-23 13:42 | XMS_ITS | Encounter Summary ---
Author Organization Healthcare Address [address] [place] [address] Care Team Providers Care Infection Control Coordinator Name Role Phone UzmaGenet hood Dorcas DAVE Primary Care Provider Georgiana Palomares RN Unavailable Unavailable Encounter Details Date Type Department Care Team (Latest Contact Info) Description 11/03/2024 Travel Social History Tobacco Use Types Packs/Day [...] [facility] [address] [place] [address] Georgiana Hutchinson 12/01/2024 11:00 AM EDT Office Visit [facility] [address] [place] [phone] Fredy Bridges MD [address] [phone] 02/16/2025 8:00 AM EDT Office Visit [facility] [address] [place] [address] Eduardo Ho MD [address] [address] documented as of this encounter Goals Goal Patient Goal Type Associated Problems Recent Progress Patient-Stated? Author STG: to be met in 2-3 visits. Occupational Therapy On track(2024 2:47 PM EDT) No Georgiana Hutchinson Note: Demonstrate full fist without pain, necessary to c software engineer objects during ADLs, such clothing to button and open fasteners LTG: to be met in 4-6 visits Occupational Therapy On track(2024 2:47 PM EDT) No Georgiana Hutchinson Note: Pt will imrpove QDASH score to <20% in order to quantify patient percieved improvement in function by discharge Improve c software engineer strength to 70% of UUE necessary for ability to c software engineer and lift objects during IADL tasks [...] documented as of this encounter Care Teams Infection Control Coordinator Relationship Specialty Start Date End Date Genet Gusman APRN [address] [place] [id number] PCP - General 05/08/23 Georgiana Palomares, RN [facility] Registered Nurse Bariatrics 01/31/24 documented as of this encounter
--- OUTSIDE RECORDS SUMMARY | 2024-11-23 13:42 | XMS_ITS | Encounter Summary ---
Author Organization Healthcare Address [address] [place] [address] Care Team Providers Care Push Connector Assembler Name Role Phone UzmaGenet hood Dorcas DAVE Primary Care Provider Georgiana Palomares RN Unavailable Unavailable Encounter Details Date Type Department Care Team (Latest Contact Info) Description 11/23/2024 Travel Social History Tobacco Use Types Packs/Day [...] [facility] [address] [place] [address] Georgiana Hutchinson 12/01/2024 11:00 AM EDT Office Visit [facility] [address] [place] [phone] Fredy Bridges MD [address] [phone] 02/16/2025 8:00 AM EDT Office Visit [facility] [address] [place] [address] Eduardo Ho MD [address] [phone] documented as of this encounter Goals Goal Patient Goal Type Associated Problems Recent Progress Patient-Stated? Author STG: to be met in 2-3 visits. Occupational Therapy On track(2024 2:47 PM EDT) No Georgiana Hutchinson Note: Demonstrate full fist without pain, necessary to special crimes investigator objects during ADLs, such clothing to button and open fasteners LTG: to be met in 4-6 visits Occupational Therapy On track(2024 2:47 PM EDT) No Georgiana Hutchinson Note: Pt will imrpove QDASH score to <20% in order to quantify patient percieved improvement in function by discharge Improve special crimes investigator strength to 70% of UUE necessary for ability to special crimes investigator and lift objects during IADL tasks such [...] documented as of this encounter Care Teams Push Connector Assembler Relationship Specialty Start Date End Date Genet Gusman APRN [address] [place] [id number] PCP - General 05/08/23 Georgiana Palomares, RN [facility] Registered Nurse Bariatrics 01/31/24 documented as of this encounter
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
[2024-11-23 14:07] LABS: Microscopic, Urine URINE MICROSCOPIC (MICROSCOPIC)
[2024-11-23 14:22] LABS: Hematocrit 38.5 % (37.0-47.0); Hemoglobin 13.0 g/dL (12.2-16.2); Immature Granulocytes % 0.2 %; Mean Corpuscular HGB Conc 33.8 g/dL (31.8-35.4); Mean Corpuscular Hemoglobin 28.8 pg (27.0-31.2); Mean Corpuscular Volume 85.2 fl (81-99); Nucleated Red Blood Cells % 0 %; Platelet Count 364 K/mm3 (142-424); Red Blood Count 4.52 M/mm3 (4.20-5.40); Red Cell Distribution Width-SD 38.4 fL; White Blood Count 8.9 K/mm3 (4.8-10.8)
[2024-11-23 14:23] LABS: Bilirubin,Urine Negative (Negative); Color,Urine YELLOW (Yellow); Glucose,Urine (UA) Negative (Negative); Ketones,Urine Negative (Negative); Leukocyte Esterase,Urine Negative (Negative); PH,Urine 6.0 (5.0-8.5); Protein,Urine Negative (Negative); Specific Gravity, Urine 1.025 (1.005-1.030); Urobilinogen,Urine 1.0 EU/dl (0.2)
[2024-11-23 14:27] LABS: Urine Pregnancy, HCG Qual. Negative (Negative)
--- NOTE | 2024-11-23 14:31 | PC.NURSE ---
PT TO RADIOLOGY
[2024-11-23 14:34] LABS: Bacteria,Urine Trace /lpf; Mucus,Urine Trace /lpf
[2024-11-23 14:48] LABS: Albumin Level 4.4 g/dl (3.5-5.0); Chloride 102 mmol/L (98-107)
[2024-11-23 14:49] LABS: Potassium 4.0 mmoL/L (3.5-5.1); Sodium 136 mmol/L (136-145)
[2024-11-23 14:51] LABS: Alanine Aminotransferase 16 U/L (12-78); Anion Gap 10.0 mEq/L (5-15); Aspartate Amino Transferase 23 U/L (14-36); Blood Urea Nitrogen 9 mg/dl (7-17); Carbon Dioxide 28 mmol/L (22.0-30.0); Creatinine Clearance Estimated 173 mL/min (50-200); Creatinine,Serum 0.60 mg/dl (0.52-1.04); Estimated Glomerular Filt Rate 113 ml/min (>60); GFR (African American) 137 ML/MIN (>60)
[2024-11-23 14:52] LABS: Albumin/Globulin Ratio 1.4 (1.1-1.8); Alkaline Phosphatase 63 U/L (38-126); Bilirubin,Total 0.6 mg/dl (0.2-1.3); Calcium 9.2 mg/dl (8.4-10.2); Globulin 3.2 g/dL (1.3-3.2); Glucose 101 mg/dl (74-100); Lipase 66 U/L (23-300); Magnesium 1.6 mg/dl (1.6-2.3); Total Protein,Serum 7.6 g/dl (6.3-8.2)
[2024-11-23] MEDS: ORPHENADRINE CITRATE 60MG/2ML VIAL 60 MG IV (15:00)
[2024-11-23] MEDS: ONDANSETRON 4MG/2ML VIAL 4 MG IV (15:01)
[2024-11-23] MEDS: ACETAMINOPHEN 1,000MG/100ML VIAL 1000 MG IV (15:01)
[2024-11-23] MEDS: 0.9 % SODIUM CHLORIDE 1000ML 1,000 ML 999 ML IV (15:01)
[2024-11-23 16:22] VITALS: BP 129/74; PULSE 60; RESP 16; TEMP 36.8; O2SAT 99
== END 2024-11-23 16:22 | disposition home or self-care (01) ==
PROVIDERS: Nurse Practitioner; Emergency Provider Student in an Organized Health Care Education/Training Program
DX: S06.0XAA Concussion with loss of consciousness status unknown, initial encounter (principal); M62.838 Other muscle spasm
CPT/HCPCS: 70450; 71046; 72125; 72128; 72131; 80053; 81001; 81025; 83690; 83735; 85025; 96361; 96374; 96375; 99285; J0131; J2360; J2405; J7030